=== PATIENT | female | born 1945 | race Caucasian/White ===

== ENCOUNTER 2016-05-29 11:48 | Inpatient (IN) | payer OTHER ==
[2016-05-29] MEDS ORDERED: SODIUM CHLORIDE 0.9% INJ SCH (12:17)
[2016-05-29] MEDS ORDERED: NS 500 ML IV ONE ×2 (12:17)
[2016-05-29] MEDS ORDERED: NS 1,000 ML ONE (12:53)
[2016-05-29] MEDS: NS 1,000 ML IV SCH ×2 (12:58→21:08)
[2016-05-29] MEDS ORDERED: PROTONIX IV SCH (13:00)
[2016-05-29 13:31] LABS: ALLEN TEST YES; BLOOD TYPE ARTERIAL; DRAW SITE L RADIAL; METHB 1.4 % (0.0-1.5); O2(CT) 8.9 mL/dL (15.0-23.0); PCO2(98.6) 32 mmHg (35-45); PO2(98.6) 72 mmHg (60-100); SAMPLE BLOOD; SAO2 100.5 % (95.0-100.0); THB 6.6 g/dL (11.5-17.4)
[2016-05-29 13:32] LABS: MODALITY ROOM AIR
[2016-05-29 13:33] LABS: pH(98.6) 7.56 (7.35-7.45)
--- NOTE | 2016-05-29 14:20 | Diag Imaging Result Document ---
PROCEDURE NAME: CHEST-1 VIEW - 05/29/2016 AP PORTABLE CHEST AT 1320 HOURS: FINDINGS: There is increasing opacification in the mid right lung probably in the middle lobe or lower lobe. There may be some fluid in the minor fissure as well. The left lung remains clear. IMPRESSION: Worsening right-sided pneumonia.
[2016-05-29 15:06] LABS: MANUAL DIFF NEEDED? NO
[2016-05-29 15:30] LABS: ALBUMIN 2.2 g/dL (3.5-5.0); CALCIUM 8.2 mg/dL (8.8-10.2); POTASSIUM 3.2 mmol/L (3.5-5.1); TOTAL BILIRUBIN 0.52 mg/dL (0.20-1.00); TOTAL PROTEIN 5.4 g/dL (6.3-8.3)
[2016-05-29 15:47] LABS: BASO% 0.2 % (0.0-0.8); EOS# 0.04 X1000 (0.0-0.7); EOS% 0.3 % (0.0-10.0); HEMATOCRIT 20.4 % (37.0-47.0); HEMOGLOBIN 6.8 g/dL (12.0-16.0); IMM GRAN# 0.06 X1000 (0.0-0.04); IMM GRAN% 0.5 % (0.0-0.5); LYMPH# 0.92 X1000 (1.2-3.4); LYMPH% 7.2 % (20.5-51.1); MCH 29.6 PG (27-31); MCHC 33.3 g/dL (33-37); MCV 88.7 FL (81-99); MONO# 1.25 X1000 (0.11-0.59); MONO% 9.7 % (1.7-9.3); MPV 9.7 FL (7.4-10.4); NEUT% 82.1 % (42.2-75.2); PLT 217 X1000 (130-400)
[2016-05-29] MEDS: PROTONIX 80 MG in NS 80 ML IV SCH (18:04)
[2016-05-29] MEDS: LEVAQUIN 500 MG/D5W 100 ML IV SCH (18:35)
[2016-05-29] MEDS: CARAFATE LIQUID PO SCH ×2 (18:47→19:14)
--- NOTE | 2016-05-29 20:51 | HISTORY AND PHYSICAL ---
CHIEF COMPLAINT: Passing of black stools. Anemia, dizziness, hypotension. HISTORY OF PRESENT ILLNESS: She is a 70-year-old pleasant white female who was seen in my office after recently discharged from the hospital 7 days ago. She was doing well until yesterday, passing black stools. She is very hypertensive, very pale. She has dark black tarry stools and heme-positive. Hematocrit was 20. She also had hypokalemia, hyponatremia, transfer to [facility] directly by ambulance for upper GI bleeding. She denies of any abdominal pain. She was started on IV fluids for hemodynamic stability until she gets the blood transfusion. She was ordered for 2 units of packed RBCs. Started on IV Protonix and also replace the potassium and GI consult was obtained by Dr. Luis cueto. She looks stable. PAST MEDICAL HISTORY: 1. Metastatic non-small cell lung cancer with right middle lobe obstruction. 2. Hypertension. 3. Hyperlipidemia. 4. COPD. 5. Tobacco abuse. 6. Peripheral vascular disease. 7. History of acid reflux disease. 8. Abdominal aortic aneurysm 3.4 cm. 9. History of bilateral renal artery stents. 10. History of right carotid endarterectomy. 11. Status post left superficial femoral atherectomy. 12. SIADH. PAST SURGICAL HISTORY: Bilateral stents, right carotid endarterectomy, left superficial femoral atherectomy. MEDICINES: Home oxygen 2 L. Protonix 40 daily. Amitriptyline 50 at bedtime. Coreg 12.5 p.o. b.i.d. Amlodipine 5 mg daily. Pletal 100 p.o. b.i.d. Potassium 20 mEq daily. Breo 1 inhalation daily. Spiriva 1 inhalation daily. Xanax 0.5 at bedtime. Tramadol 50 b.i.d. Folic acid 1 mg daily. ALLERGIES: Penicillin. SOCIAL HISTORY: Lives in [place]. . 3 children. Retired. No smoking recently, no alcohol. FAMILY HISTORY: Father 90 years old with hypertension. Mom of diabetes and hypertension. HEALTH MAINTENANCE: Flu vaccine 2015, pneumonia in 2014, mammography 2015, colonoscopy 2009. REVIEW OF SYSTEMS: HEENT: Dizziness. Passing out. Unable to walk. Neurologic: No shortness of breath. No chest pain. GI: No abdominal pain. Passing black stools. : No history of hesitancy, frequency. Weak legs. No obvious deficits noted. Skin: A small lump in the right side of the abdomen. PHYSICAL EXAMINATION: GENERAL: In my office, she is hypotensive, tachycardic, very pale and tongue is dry. NECK: Supple. CHEST: No wheezing. Decreased breath sounds on the right side. HEART: Sounds are tachycardic. ABDOMEN: Belly is soft. No obvious signs of peritonitis. Heme-positive stools. EXTREMITIES: No peripheral edema or cyanosis. No obvious deficits noted. INVESTIGATIONS: CBC: White cell count 12, hematocrit 20, platelets 217,000. ABG: PH is 7.56, pCO2 32, PO2 72 on room air. SMA 7: Sodium 123, potassium 3.2, BUN 21, creatinine 1.3, calcium 8.2, alkaline phosphatase 116. Chest x-ray: Worsening of the right middle lobe pneumonia. ASSESSMENT AND PLAN: 1. 70-year-old white female, with a stage IV non-small cell lung cancer under care of Dr. Roche, waiting for treatment once her performance status improves. Unable to improve the right middle lobe pneumonia for the last 2 months. Basically, admitted to the hospital with anemia, hypertension, Hemoccult positive stools. Rule out upper gastrointestinal bleeding. Plan is transfusion 2 units of packed RBCs. Intravenous proton pump inhibitor, avoid nonsteroidal antiinflammatory drugs and Lovenox. 2. Deep venous thrombosis prophylaxis with antithrombotic stockings and continue on intravenous Protonix. 3. Right middle lobe pneumonia due to post obstruction. Plan is intravenous antibiotics with Levaquin, bronchodilators and stay away from the intravenous steroids. 4. Hyponatremia due to syndrome of inappropriate antidiuretic hormone secretion. 5. Hypokalemia, replace the potassium. 6. Living Will is Do Not Resuscitate. 7. Gastroenterology consult with Dr. Luis cueto.
[2016-05-29] MEDS: DUONEB (A & A) INH PRN (21:05)
[2016-05-29] MEDS: ULTRAM PO SCH (21:09)
[2016-05-29] MEDS: XANAX XR PO SCH (21:09)
[2016-05-29] MEDS ORDERED: NS 500 ML ONE (21:29)
[2016-05-29] MEDS: POTASSIUM CHLORIDE 40 MEQ in NS 250 ML IV SCH (21:44)
[2016-05-30] MEDS ORDERED: BLISTEX MEDICATED BERRY LIP BALM TOP PRN (01:57)
[2016-05-30] MEDS: CARAFATE LIQUID PO SCH (02:24)
[2016-05-30] MEDS: DUONEB (A & A) INH PRN ×4 (03:30→18:56)
[2016-05-30] MEDS ORDERED: LASIX IV ONE ×2 (03:32→08:24)
[2016-05-30] MEDS: POTASSIUM CHLORIDE 40 MEQ in NS 250 ML IV SCH (04:40)
[2016-05-30] MEDS: PROTONIX 80 MG in NS 80 ML IV SCH ×2 (05:19→13:33)
[2016-05-30] MEDS: NS 1,000 ML IV SCH ×3 (05:20→18:18)
[2016-05-30] MEDS: SPIRIVA INH SCH ×4 (05:21→21:25)
[2016-05-30 07:04] LABS: MANUAL DIFF NEEDED? NO
[2016-05-30 07:08] LABS: BASO% 0.2 % (0.0-0.8); EOS# 0.08 X1000 (0.0-0.7); EOS% 0.6 % (0.0-10.0); HEMOGLOBIN 10.8 g/dL (12.0-16.0); IMM GRAN% 0.7 % (0.0-0.5); LYMPH# 0.77 X1000 (1.2-3.4); LYMPH% 5.7 % (20.5-51.1); MCH 29.8 PG (27-31); MCHC 34.8 g/dL (33-37); MCV 85.4 FL (81-99); MONO# 1.25 X1000 (0.11-0.59); MONO% 9.3 % (1.7-9.3); MPV 9.4 FL (7.4-10.4); NEUT% 83.5 % (42.2-75.2); PLT 209 X1000 (130-400); RBC 3.63 XMIL (4.2-5.4)
[2016-05-30 07:10] LABS: INR 1.2; PROTIME 12.7 Seconds (9.2-11.7)
[2016-05-30 07:24] LABS: POTASSIUM 3.6 mmol/L (3.5-5.1)
[2016-05-30] MEDS ORDERED: VENOFER IV ONE (08:12)
[2016-05-30] MEDS: CYANOCOBALAMIN IM SCH (08:16)
[2016-05-30] MEDS ORDERED: VENOFER 300 MG in NS 250 ML IV ONE (09:00)
[2016-05-30 11:17] LABS: URINE CULTURE NEEDED? NO; URINE SOURCE CATH
[2016-05-30 11:24] LABS: BILIRUBIN URINE NEGATIVE (NEGATIVE); BLOOD URINE NEGATIVE (NEGATIVE); COLOR STRAW; GLUCOSE URINE NEGATIVE (NEGATIVE); LEUKOCYTES URINE NEGATIVE (NEGATIVE); NITRITE URINE NEGATIVE (NEGATIVE); PROTEIN URINE TRACE mg/dL (NEGATIVE); SP GRAVITY URINE 1.006; TURBIDITY URINE CLEAR (CLEAR); URINE MICRO REVIEW NEEDED? YES; UROBILINOGEN URINE NORMAL (NORMAL)
[2016-05-30 11:30] LABS: UR EPITHELIAL CELLS <10 /HPF (<10); URINE BACTERIA NEGATIVE /HPF; URINE RBC <10 /HPF (<10); URINE WBC <10 /HPF (<10)
[2016-05-30] MEDS ORDERED: DIPRIVAN 1% ONE (13:06)
[2016-05-30] MEDS ORDERED: STERILE WATER INJ. ONE (13:28)
[2016-05-30] MEDS ORDERED: NEO-SYNEPHRINE ONE (13:28)
[2016-05-30] MEDS ORDERED: NS 500 ML ONE (13:29)
[2016-05-30] MEDS ORDERED: ANESTHESIA PB SET 88 IN 5742 ONE (13:29)
[2016-05-30] MEDS ORDERED: XYLOCAINE-MPF 2% ONE (13:29)
[2016-05-30] MEDS: ULTRAM PO SCH ×2 (13:33→20:15)
[2016-05-30] MEDS ORDERED: MYLICON DROPS (DOSE) MISC ONE (13:35)
--- NOTE | 2016-05-30 13:43 | OPERATIVE NOTE ---
PROCEDURE DATE : 05/30/2016 PREOPERATIVE DIAGNOSIS: Gastrointestinal bleed. POSTOPERATIVE DIAGNOSIS: Large ulcerated mass in the gastric fundus, likely metastatic carcinoma. DESCRIPTION OF PROCEDURE: After informed consent, adequate intravenous sedation, the scope introduced in esophagus. Had no varices. Cardia, fundus, body carefully examined. No old blood seen. Duodenum: No old blood seen. On retroflexed view, she had a small AVM; however, right next to it, patient had a large ulcerated mass with some old blood adherent. This was lavaged. There is no active bleeding anywhere. Biopsies were done around the edges. INCOMPLETE REPORT--DICTATION ENDS HERE.
[2016-05-30] MEDS: BREO ELLIPTA 100/25 MCG INH INH SCH (15:26)
[2016-05-30] MEDS: CARAFATE PO SCH ×2 (16:39→20:15)
[2016-05-30] MEDS: MYCOSTATIN SUSP PO SCH ×2 (16:56→20:15)
[2016-05-30] MEDS: LEVAQUIN 500 MG/D5W 100 ML IV SCH (18:18)
[2016-05-30] MEDS: NORCO-5 PO PRN (19:05)
[2016-05-30] MEDS: XANAX XR PO SCH (20:15)
[2016-05-31] MEDS: NORCO-5 PO PRN ×3 (00:50→15:37)
[2016-05-31] MEDS: PROTONIX 80 MG in NS 80 ML IV SCH ×3 (01:05→11:32)
[2016-05-31] MEDS: DUONEB (A & A) INH PRN ×4 (03:04→19:56)
[2016-05-31] MEDS: CARAFATE PO SCH ×4 (06:14→20:27)
[2016-05-31] MEDS: NS 1,000 ML IV SCH (06:14)
[2016-05-31] MEDS: CYANOCOBALAMIN IM SCH (08:49)
[2016-05-31] MEDS: ULTRAM PO SCH ×2 (08:49→20:27)
[2016-05-31] MEDS: CLINIMIX E 4.25%-5% SOLUTION 1,000 ML IV SCH (08:49)
[2016-05-31] MEDS: MYCOSTATIN SUSP PO SCH ×4 (08:50→20:29)
[2016-05-31] MEDS: BREO ELLIPTA 100/25 MCG INH INH SCH (10:31)
[2016-05-31 14:48] LABS: BASO% 0.2 % (0.0-0.8); EOS# 0.26 X1000 (0.0-0.7); HEMATOCRIT 29.3 % (37.0-47.0); HEMOGLOBIN 9.8 g/dL (12.0-16.0); LYMPH# 1.43 X1000 (1.2-3.4); LYMPH% 10.7 % (20.5-51.1); MANUAL DIFF NEEDED? YES; MCH 29.6 PG (27-31); MCHC 33.4 g/dL (33-37); MCV 88.5 FL (81-99); MONO# 0.77 X1000 (0.11-0.59); MONO% 5.8 % (1.7-9.3); MPV 9.1 FL (7.4-10.4); NEUT% 81.3 % (42.2-75.2); PLT 144 X1000 (130-400); RBC 3.31 XMIL (4.2-5.4)
[2016-05-31 14:53] LABS: BANDS 4 % (0-1); LYMPHS 12 % (21-51); MONO 6 % (1-9)
[2016-05-31 15:03] LABS: CALCIUM 7.6 mg/dL (8.8-10.2); POTASSIUM 3.3 mmol/L (3.5-5.1)
--- NOTE | 2016-05-31 16:15 | PROGRESS NOTE ---
DATE: 05/31/2016 SUBJECTIVE: The patient is currently resting in bed. Her daughters are present at bedside. We are awaiting the biopsy results from the stomach ulcerated mass. OBJECTIVE: Vital Signs: Temperature 97.5 degrees, pulse rate 107, respiratory rate 16, blood pressure 115/57, saturating 97% on 3 L nasal cannula. General Appearance: Thinly built, lying in bed, in no acute distress. HEENT: Pale conjunctivae. No icterus. Neck: Supple. Abdomen: Soft, nontender, nondistended. Small bruise noted on the skin of the abdomen. Extremities: No cyanosis, clubbing. Neurologic: She was awake and alert and answers simple questions. LABORATORY DATA: Her hemoglobin and hematocrit are 9.8 and 29.3, white count of 13.31, platelet count of 144,000. Sodium 126, potassium 3.3, chloride of 86, bicarb of 25, anion gap of 15, BUN of 17, creatinine 1, glucose of 166, calcium 7.6. AST 17, ALT 11, alkaline phosphatase 116, total protein 5.4, albumin of 2.2. INR is 1.20. IMPRESSION AND PLAN: 1. Non-small cell lung cancer diagnosed 3 weeks ago. Awaiting Oncology input per Dr. Palencia. 2. Large ulcerated mass in the gastric fundus, likely metastatic carcinoma, but awaiting the gastric biopsy results. 3. Anemia. Will need to watch. 4. Will continue on Protonix drip, and then after 72 hours, switch to Protonix intravenously twice daily. She will continue on Carafate 1 gram every 6 hours. Above plan of care was discussed with the patient and family.
[2016-05-31] MEDS: LEVAQUIN 500 MG/D5W 100 ML IV SCH (16:59)
[2016-05-31] MEDS: SPIRIVA INH SCH (19:56)
[2016-05-31] MEDS: XANAX XR PO SCH (20:27)
[2016-06-01] MEDS: NORCO-5 PO PRN ×3 (00:36→16:16)
[2016-06-01] MEDS: PROTONIX 80 MG in NS 80 ML IV SCH ×2 (00:37→09:46)
[2016-06-01] MEDS: CARAFATE PO SCH ×4 (06:43→22:22)
[2016-06-01] MEDS: CLINIMIX E 4.25%-5% SOLUTION 1,000 ML IV SCH (06:44)
[2016-06-01 07:49] LABS: MANUAL DIFF NEEDED? NO
[2016-06-01 07:54] LABS: BASO% 0.8 % (0.0-0.8); EOS# 0.18 X1000 (0.0-0.7); EOS% 1.7 % (0.0-10.0); HEMATOCRIT 29.7 % (37.0-47.0); HEMOGLOBIN 10.2 g/dL (12.0-16.0); IMM GRAN# 0.13 X1000 (0.0-0.04); IMM GRAN% 1.2 % (0.0-0.5); LYMPH# 1.56 X1000 (1.2-3.4); LYMPH% 14.7 % (20.5-51.1); MCH 29.6 PG (27-31); MCHC 34.3 g/dL (33-37); MCV 86.1 FL (81-99); MONO# 0.86 X1000 (0.11-0.59); MONO% 8.1 % (1.7-9.3); MPV 9.9 FL (7.4-10.4); NEUT% 73.5 % (42.2-75.2); PLT 160 X1000 (130-400); RBC 3.45 XMIL (4.2-5.4)
[2016-06-01 08:13] LABS: AGAP 15; BUN 18 mg/dL (8-22); CALCIUM 7.9 mg/dL (8.8-10.2); CHLORIDE 84 mmol/L (98-107); COSMO 253; POTASSIUM 3.3 mmol/L (3.5-5.1); SODIUM 125 mmol/L (136-145); TCO2 26 mmol/L (25-35)
[2016-06-01] MEDS: ULTRAM PO SCH ×2 (09:45→22:21)
[2016-06-01] MEDS: CYANOCOBALAMIN IM SCH (09:46)
[2016-06-01] MEDS: MYCOSTATIN SUSP PO SCH ×4 (09:46→22:36)
[2016-06-01] MEDS: POTASSIUM CHLORIDE 40 MEQ in NS 250 ML IV SCH ×2 (09:54→22:21)
--- NOTE | 2016-06-01 11:17 | PROGRESS NOTE ---
DATE: 06/01/2016 SUBJECTIVE: The patient is resting in bed. She was seen by Dr. Palencia yesterday and the plan is to start her on radiation and chemotherapy today. PHYSICAL EXAMINATION: Vital Signs: Temperature of 97.6 degrees, pulse rate of 108, respiratory rate of rate 20, blood pressure 132/75, saturating 94% on nasal cannula. Body weight of 140 pounds 8 ounces. General Appearance: Moderately built, moderately nourished, lying in bed, in no acute distress. HEENT: Pale conjunctivae. No icterus. Neck: Supple. Abdomen: Soft, nontender, nondistended. Extremities: No cyanosis, clubbing. Neurologic: She is alert, awake, oriented x3. LABS: Her hemoglobin and hematocrit are 10.2 and 29.7, white count of 10.5, platelet count of 160,000, MCV of 86.1. INR 1.2. Sodium of 125, potassium 3.3, chloride of 84, bicarb of 26, anion gap of 15, BUN of 15, creatinine of 0.8, glucose of 94, calcium 7.9. IMPRESSION AND PLAN: 1. Non-small cell lung cancer, likely metastatic. Now starting chemotherapy and radiation therapy with Dr. Palencia. 2. Large ulcerated mass in the gastric fundus, biopsied. We will follow the stomach biopsies. 3. Anemia. We will continue iron supplementation. 4. Gastrointestinal prophylaxis with Protonix and Carafate. 5. The patient has constipation. She has not had a bowel movement in last 2 or 3 days so we will start her on Summer-Colace once daily. 6. The above plan of care was discussed with the patient and family. All questions were answered.
[2016-06-01] MEDS: BREO ELLIPTA 100/25 MCG INH INH SCH (11:48)
[2016-06-01] MEDS: DUONEB (A & A) INH PRN ×3 (11:48→22:41)
--- NOTE | 2016-06-01 12:18 | CONSULTATION ---
DATE OF CONSULTATION: 05/31/2016 We appreciate this consult. CHIEF COMPLAINT: Metastatic lung cancer with GI bleed. HISTORY OF PRESENT ILLNESS: Ms. Springer is a very pleasant 70-year-old female with recent diagnosis of lung cancer who presented to [facility] secondary to passing black stools. Upon presentation to [facility], the patient was quite hypotensive with significant dizziness. The patient was found to have a hematocrit of 20 on admission as well as significant hypokalemia, hyponatremia. The patient was immediately begun on IV fluids with plans for transfusion of packed red blood cells. GI consult was obtained, and the patient subsequently underwent EGD which revealed a large ulcerated mass in the gastric fundus likely secondary to metastatic carcinoma. Pathology is currently pending at this time. We are consulted for lung cancer with likely metastasis to gastric fundus. PAST MEDICAL HISTORY: 1. Metastatic non-small cell lung cancer with right middle lobe obstruction. 2. Hypertension. 3. Hyperlipidemia. 4. COPD. 5. Tobacco abuse. 6. Peripheral vascular disease. 7. Gastroesophageal reflux disease. 8. Abdominal aortic aneurysm, 3.4 cm. 9. Bilateral renal artery stents. 10.Right carotid endarterectomy. 11.Left superficial femoral arthrectomy. 12.SIADH. PAST SURGICAL HISTORY: 1. Bilateral renal stent placement. 2. Right carotid endarterectomy. 3. Left superficial femoral arthrectomy. FAMILY HISTORY: Significant for hypertension in her father and mother, negative for any hematologic or oncologic disease. SOCIAL HISTORY: The patient is . She has 3 children. She does not currently smoke. She does not use alcohol or illicit drugs. MEDICATIONS ON ADMISSION: 1. Home O2 at 2 L. 2. Protonix. 3. Amitriptyline. 4. Coreg. 5. Amlodipine. 6. Pletal. 7. Potassium. 8. Breo. 9. Spiriva. 10.Xanax. 11.Tramadol. 12.Folic acid. ALLERGIES: Penicillin. REVIEW OF SYSTEMS: A 14-point review of systems was obtained and is negative except for as mentioned in the HPI. PHYSICAL EXAMINATION: General: Ms. Springer is a 70-year-old female lying supine in bed in no immediate distress. Vital signs: Temp 98.4, blood pressure 131/70, heart rate 109, respirations 16, O2 saturation 99% on 3 L nasal cannula O2. HEENT: Normocephalic, atraumatic. Mucous membranes are pink and somewhat dry. Sclera is anicteric. Extraocular movements intact. Neck: Supple. Lungs: Clear to auscultation bilaterally with decreased breath sounds in the right lower lobe. Chest expansion is equal bilaterally. CV: S1, S2 is heard without murmur, rub, or gallop. Abdomen: Soft, nondistended. Positive in the epigastric region. Bowel sounds are positive in all quadrants. No rebound or guarding noted. Extremities: Without clubbing, cyanosis, or edema. Dermatologic: No rashes, bruises, or lesions. Neurologic: The patient is awake, alert, and oriented x3. She has no focal deficit at this time. LABORATORY DATA: Hemoglobin 10.8, hematocrit 31.0, white blood cell count 13.43, platelets 209, ANC 11.20. Sodium 128, potassium 3.6, chloride 89, CO2 is 25, BUN 17, creatinine 1.1, glucose 104. Calcium is 8.0. UA is negative for UTI. ASSESSMENT AND PLAN: 1. Metastatic lung cancer now with likely gastric fundus involvement. The patient is status post EGD which revealed a large ulcerated mass in the gastric fundus which is likely metastatic cancer, pathology is currently pending. We will obtain PD-L1 by EGFR with questionable radiation to stomach. Treatment plan to be discussed by Dr. Palencia with the family. 2. Acute gastrointestinal bleed with subsequent esophagogastroduodenoscopy revealing large ulcerated mass in the gastric fundus, likely metastatic cancer. Pathology is currently pending. Hemoglobin has increased to 10.8 status post packed red blood cell transfusion. We will continue to follow hemoglobin and hematocrit and transfuse as necessary. Additionally, we agree with Protonix IV as ordered. 3. We will follow along with you. 4. Further recommendations pending outcomes. The above reflects the history, exam, assessment and plan of Dr. Palencia. Dictated by HIMA Chu for Jose Palencia MD
[2016-06-01] MEDS ORDERED: NS 250 ML ONE (16:03)
[2016-06-01] MEDS ORDERED: EMEND 150 MG in NS 145 ML IV ONE (18:00)
[2016-06-01] MEDS ORDERED: ZOFRAN 16 MG in NS 50 ML IV ONE (18:20)
[2016-06-01] MEDS ORDERED: DECADRON IV ONE (18:20)
[2016-06-01] MEDS ORDERED: [UNRECOGNIZED DRUG - OTHER] IV ONE (19:00)
[2016-06-01] MEDS ORDERED: NS IV ONE ×2 (19:00→19:45)
[2016-06-01] MEDS: SPIRIVA INH SCH (19:15)
[2016-06-01] MEDS ORDERED: NS 100 ML IV ONE (19:30)
[2016-06-01] MEDS ORDERED: PARAPLATIN IV ONE (19:45)
[2016-06-01] MEDS: LEVAQUIN 500 MG/D5W 100 ML IV SCH (22:21)
[2016-06-01] MEDS: PERICOLACE PO SCH (22:21)
[2016-06-01] MEDS: XANAX XR PO SCH (22:34)
[2016-06-02] MEDS: PROTONIX 80 MG in NS 80 ML IV SCH (04:25)
[2016-06-02] MEDS: CLINIMIX E 4.25%-5% SOLUTION 1,000 ML IV SCH ×2 (06:23→20:28)
[2016-06-02] MEDS: CARAFATE PO SCH ×4 (06:31→20:21)
[2016-06-02] MEDS ORDERED: POTASSIUM CHLORIDE 40 MEQ/SWI 100 ML IV ONE (08:56)
[2016-06-02] MEDS: BREO ELLIPTA 100/25 MCG INH INH SCH (09:20)
[2016-06-02] MEDS: DUONEB (A & A) INH PRN ×4 (09:20→23:31)
[2016-06-02] MEDS: CYANOCOBALAMIN IM SCH (09:46)
[2016-06-02] MEDS: ULTRAM PO SCH ×2 (09:46→20:21)
[2016-06-02] MEDS: MYCOSTATIN SUSP PO SCH ×4 (09:47→20:29)
[2016-06-02] MEDS: POTASSIUM CHLORIDE 20 MEQ/SWI 100 ML IV SCH ×2 (09:54→14:29)
[2016-06-02] MEDS ORDERED: ZOFRAN IV ONE (13:00)
[2016-06-02] MEDS: NORCO-5 PO PRN ×2 (16:30→23:23)
[2016-06-02] MEDS: LEVAQUIN 500 MG/D5W 100 ML IV SCH (18:22)
[2016-06-02] MEDS: PERICOLACE PO SCH (20:21)
[2016-06-02] MEDS: XANAX XR PO SCH (20:21)
[2016-06-02] MEDS: SPIRIVA INH SCH ×2 (20:31)
[2016-06-03] MEDS ORDERED: SOLU-MEDROL IV ONE (00:51)
[2016-06-03] MEDS: DUONEB (A & A) INH PRN ×4 (05:52→22:20)
[2016-06-03] MEDS: PROTONIX PO SCH (06:06)
[2016-06-03] MEDS: CARAFATE PO SCH ×4 (06:06→20:39)
[2016-06-03] MEDS: NORCO-5 PO PRN (06:06)
[2016-06-03] MEDS: SOLU-MEDROL IV SCH ×3 (06:46→20:42)
[2016-06-03 07:01] LABS: BASO% 0.2 % (0.0-0.8); HEMATOCRIT 26.6 % (37.0-47.0); HEMOGLOBIN 8.9 g/dL (12.0-16.0); IMM GRAN# 0.09 X1000 (0.0-0.04); IMM GRAN% 0.7 % (0.0-0.5); LYMPH# 0.33 X1000 (1.2-3.4); LYMPH% 2.4 % (20.5-51.1); MANUAL DIFF NEEDED? YES; MCH 29.2 PG (27-31); MCHC 33.5 g/dL (33-37); MCV 87.2 FL (81-99); MONO# 0.21 X1000 (0.11-0.59); MONO% 1.5 % (1.7-9.3); MPV 11.3 FL (7.4-10.4); NEUT% 95.2 % (42.2-75.2); PLT 128 X1000 (130-400); RBC 3.05 XMIL (4.2-5.4)
[2016-06-03 07:04] LABS: AGAP 15; BUN 40 mg/dL (8-22); CALCIUM 7.6 mg/dL (8.8-10.2); CHLORIDE 90 mmol/L (98-107); COSMO 274; POTASSIUM 4.7 mmol/L (3.5-5.1); SODIUM 129 mmol/L (136-145); TCO2 24 mmol/L (25-35)
[2016-06-03 08:10] LABS: BANDS 2 % (0-1); LYMPHS 4 % (21-51); MONO 6 % (1-9)
[2016-06-03 08:11] LABS: HYPOCHROM 1+
[2016-06-03] MEDS: BREO ELLIPTA 100/25 MCG INH INH SCH (08:27)
--- NOTE | 2016-06-03 08:54 | Diag Imaging Result Document ---
PROCEDURE NAME: CHEST-PORTABLE - 06/03/2016 SINGLE FRONTAL RADIOGRAPH OF THE CHEST: COMPARISON: 05/29/2016. FINDINGS: Dense consolidation throughout the right lung has worsened during the interval. The greatest density is at the right lower lung zone. The left lung remains grossly clear. The cardiac silhouette is stable. There has been interval placement of a left PICC line, with the tip projecting over the region of the atriocaval junction in expected position. IMPRESSION: Interval worsening of dense infiltrates throughout the right lung, suggesting pneumonia.
[2016-06-03] MEDS ORDERED: SOLU-MEDROL IV SCH ×2 (09:00→13:00)
[2016-06-03] MEDS: ULTRAM PO SCH ×2 (11:09→20:40)
[2016-06-03] MEDS: MYCOSTATIN SUSP PO SCH ×4 (11:10→20:40)
[2016-06-03] MEDS: CYANOCOBALAMIN IM SCH (11:10)
[2016-06-03] MEDS: ZOFRAN IV PRN (11:19)
[2016-06-03] MEDS ORDERED: VANCOMYCIN IV PER PHARMACY MISC SCH (12:00)
[2016-06-03] MEDS ORDERED: NS 500 ML IV ONE (14:04)
[2016-06-03] MEDS: CLINIMIX E 4.25%-5% SOLUTION 1,000 ML IV SCH (16:36)
[2016-06-03] MEDS: VANCOMYCIN 1.5 GM in NS 250 ML IV SCH (16:36)
--- NOTE | 2016-06-03 18:23 | CONSULTATION ---
DATE OF CONSULTATION: 06/03/2016 REQUESTING PHYSICIAN: Dr. Chan. REASON FOR CONSULTATION: Pneumonia. HISTORY OF PRESENT ILLNESS: Ms. Springer is a 70-year-old white female who was admitted to the hospital in April with shortness of breath. The patient has undergone a bronchoscopy by Dr. Lara on 04/21/2016 which revealed adenocarcinoma involving the right middle lobe. She underwent a PET scan which revealed stage IV disease with bilateral adrenal metastasis. She was discharged home only to be readmitted to the hospital on 05/29/2016 with melena. The patient underwent EGD by Dr. Smith which reveal revealed a large ulcerated mass in the duodenum. Biopsy of this mass revealed adenocarcinoma consistent with metastatic disease. She underwent chest x-ray on the day of admission, which revealed opacification in the right middle lobe. She underwent a chest x- ray today which reveals diffuse infiltrates throughout the right lung. The patient reports she has had some nausea. She denies overt vomiting. She is hoarse. She has no appetite. PAST MEDICAL HISTORY/PROBLEM LIST: 1. Stage IV adenocarcinoma of the lung as per HPI with obstruction of the right middle lobe. 2. COPD. 3. History of tobacco use. 4. Peripheral vascular disease. 5. Gastroesophageal reflux disease. 6. Abdominal aortic aneurysm. 7. Status post bilateral renal artery stent placement. 8. Status post right carotid endarterectomy. FAMILY HISTORY: Positive for hypertension but otherwise negative. SOCIAL HISTORY: Positive for prior tobacco use but no alcohol or drug use. PHYSICAL EXAMINATION: General: Reveals a frail, white female who has mild hoarseness. There is a notable slight wheeze with inhalation. Vital Signs: Blood pressure 139/74, heart rate 113, respiration rate 20, oxygen saturation 96%. HEENT: Pupils are equal and reactive. Oropharynx is clear. Neck: Supple. Chest: Reveals coarse breath sounds throughout the right lung. Cardiac Exam: Distant heart sounds. Increased rate, regular rhythm. Abdomen: Soft without hepatosplenomegaly. Extremities: Without edema. LABORATORIES: Chest x-ray as per HPI. White blood count 13.7, hemoglobin 8.9, platelet count 128,000. Chemistry: Sodium 129, potassium 4.7, chloride 90, bicarbonate 24, BUN 40, creatinine 0.7. IMPRESSION: 70-year-old with stage IV lung cancer, protein calorie malnutrition, nausea, metastasis to the GI tract who has known tumor obstructing the right middle lobe, but now has a diffuse pneumonia on the right side. Pneumonia is most likely related to an aspiration event given her nausea and GI difficulties. RECOMMENDATIONS: 1. Will continue albuterol and Atrovent for bronchial hygiene. 2. We will add Mucomyst to help thin secretions. 3. Agree with broad-spectrum antibiotics as you are doing. 4. We will continue Clinimix. We will add lipids. I have asked the patient to eat only when she is hungry. 5. Additional recommendations pending hospital course. End of life issues were not discussed with this patient but she is frail and has significant tumor burden and is at risk for progressive decline.
[2016-06-03] MEDS: DUONEB (A & A) INH SCH (18:52)
[2016-06-03] MEDS ORDERED: LASIX IV ONE (20:00)
[2016-06-03] MEDS: XANAX PO PRN (20:40)
[2016-06-03] MEDS: PERICOLACE PO SCH (20:40)
[2016-06-03] MEDS: LEVAQUIN 500 MG/D5W 100 ML IV SCH (20:41)
[2016-06-03] MEDS: LIPOSYN 20% 500 ML IV SCH (20:41)
[2016-06-03] MEDS: MUCOMYST 20% INH SCH (22:20)
[2016-06-04] MEDS: DUONEB (A & A) INH SCH ×6 (00:25→23:41)
[2016-06-04] MEDS: SOLU-MEDROL IV SCH ×6 (00:29→23:42)
[2016-06-04] MEDS: CLINIMIX E 4.25%-5% SOLUTION 1,000 ML IV SCH ×4 (00:31→23:42)
[2016-06-04] MEDS: NORCO-5 PO PRN ×5 (00:48→23:07)
[2016-06-04] MEDS: XANAX PO PRN ×3 (02:59→19:48)
[2016-06-04] MEDS: CARAFATE PO SCH ×5 (06:11→21:11)
[2016-06-04] MEDS: PROTONIX PO SCH (06:11)
[2016-06-04] MEDS: BREO ELLIPTA 100/25 MCG INH INH SCH (07:29)
[2016-06-04] MEDS: MUCOMYST 20% INH SCH ×2 (07:29→19:05)
--- NOTE | 2016-06-04 10:16 | Diag Imaging Result Document ---
PROCEDURE NAME: CHEST-PORTABLE - 06/04/2016 SINGLE FRONTAL RADIOGRAPH OF THE CHEST: COMPARISON: 06/03/2016. FINDINGS: Diffuse consolidation throughout the right lung persists. But there does appear to be some improvement in the right upper lung zone. The most dense portion of the consolidation in the right lower lobe is stable to marginally improved. No new consolidations are identified. There is a stable left PICC line. Cardiac silhouette is stable. IMPRESSION: Interval improvement of consolidation on the right.
[2016-06-04] MEDS: MYCOSTATIN SUSP PO SCH ×5 (10:33→21:11)
[2016-06-04] MEDS: LASIX IV SCH (10:33)
[2016-06-04] MEDS: ULTRAM PO SCH ×3 (10:33→21:10)
[2016-06-04] MEDS: VANCOMYCIN 1.5 GM in NS 250 ML IV SCH (13:20)
[2016-06-04] MEDS: ZOFRAN IV PRN ×3 (13:20→21:20)
[2016-06-04] MEDS: DUONEB (A & A) INH PRN (18:28)
[2016-06-04] MEDS ORDERED: MORPHINE ONE (21:05)
[2016-06-04] MEDS: PERICOLACE PO SCH (21:20)
[2016-06-04] MEDS: LIPOSYN 20% 500 ML IV SCH (21:21)
[2016-06-04] MEDS: LEVAQUIN 500 MG/D5W 100 ML IV SCH (21:28)
[2016-06-05] MEDS: XANAX PO PRN ×4 (01:08→19:15)
[2016-06-05] MEDS: MORPHINE IV PRN ×3 (03:03→15:26)
[2016-06-05] MEDS: ZOFRAN IV PRN (04:40)
[2016-06-05] MEDS: NORCO-5 PO PRN ×3 (04:40→19:15)
[2016-06-05] MEDS: CARAFATE PO SCH ×4 (06:25→20:39)
[2016-06-05] MEDS: SOLU-MEDROL IV SCH ×4 (06:25→22:20)
[2016-06-05] MEDS: PROTONIX PO SCH (06:25)
--- NOTE | 2016-06-05 07:28 | EKG Report ---
Test Performed on : 06/04/2016 8:42:52 PM Test Reason : SINUS TACH Blood Pressure : / mmHG Vent. Rate : 148 BPM Atrial Rate : 148 BPM P-R Int : 136 ms QRS Dur : 074 ms QT Int : 256 ms P-R-T Axes : 063 067 097 degrees QTc Int : 401 ms Sinus tachycardia. Possible Left atrial enlargement Borderline ECG When compared with ECG of 16-MAY-2016 23:44, No significant change was found Confirmed by Imtiaz Wolff MD ([id number]) on 06/07/2016 8:56:32 PM
[2016-06-05] MEDS: DUONEB (A & A) INH SCH ×4 (08:10→19:15)
[2016-06-05] MEDS: BREO ELLIPTA 100/25 MCG INH INH SCH (08:10)
[2016-06-05] MEDS: MUCOMYST 20% INH SCH ×2 (08:10→21:12)
[2016-06-05 09:10] LABS: BASO% 0.4 % (0.0-0.8); EOS# 0.03 X1000 (0.0-0.7); EOS% 0.3 % (0.0-10.0); HEMATOCRIT 22.5 % (37.0-47.0); HEMOGLOBIN 7.9 g/dL (12.0-16.0); IMM GRAN# 0.23 X1000 (0.0-0.04); IMM GRAN% 2.1 % (0.0-0.5); LYMPH# 0.28 X1000 (1.2-3.4); LYMPH% 2.5 % (20.5-51.1); MANUAL DIFF NEEDED? YES; MCH 29.9 PG (27-31); MCHC 35.1 g/dL (33-37); MCV 85.2 FL (81-99); MONO% 0.9 % (1.7-9.3); MPV 11.6 FL (7.4-10.4); NEUT% 93.8 % (42.2-75.2); PLT 76 X1000 (130-400); RBC 2.64 XMIL (4.2-5.4)
[2016-06-05 09:25] LABS: AGAP 14; BUN 61 mg/dL (8-22); CALCIUM 7.7 mg/dL (8.8-10.2); CHLORIDE 81 mmol/L (98-107); COSMO 271; POTASSIUM 4.4 mmol/L (3.5-5.1); SODIUM 121 mmol/L (136-145); TCO2 26 mmol/L (25-35)
[2016-06-05] MEDS: MYCOSTATIN SUSP PO SCH ×4 (09:25→20:41)
[2016-06-05] MEDS: ULTRAM PO SCH ×2 (09:25→20:39)
[2016-06-05] MEDS: LASIX IV SCH (09:25)
[2016-06-05 10:29] LABS: BANDS 1 % (0-1); LYMPHS 3 % (21-51); MONO 1 % (1-9); POLYCHROM OCCASIONAL
[2016-06-05 10:30] LABS: HYPOCHROM 1+
[2016-06-05 10:31] LABS: LARGE PLATELETS OCCASIONAL
--- NOTE | 2016-06-05 11:45 | Diag Imaging Result Document ---
PROCEDURE NAME: CHEST-2 VIEWS - 06/05/2016 PA AND LATERAL RADIOGRAPH OF THE CHEST: COMPARISON: 06/04/2016. FINDINGS: The left PICC line is stable. Right lung consolidation is again noted that is most dense at the right lower lobe. Given differences in inspiration, it is approximately stable. No new consolidation is identified. Cardiac silhouette is stable. IMPRESSION: Essentially stable chest.
[2016-06-05] MEDS: CLINIMIX E 4.25%-5% SOLUTION 1,000 ML IV SCH (12:07)
[2016-06-05] MEDS: VANCOMYCIN 1.5 GM in NS 250 ML IV SCH (13:47)
[2016-06-05] MEDS ORDERED: NS 1,000 ML ONE (15:24)
[2016-06-05] MEDS ORDERED: NS 500 ML IV ONE (19:39)
[2016-06-05] MEDS: PERICOLACE PO SCH (20:39)
[2016-06-05] MEDS: MARINOL PO SCH (20:39)
[2016-06-05] MEDS: LEVAQUIN 500 MG/D5W 100 ML IV SCH (20:40)
[2016-06-05] MEDS: LIPOSYN 20% 500 ML IV SCH (20:41)
[2016-06-06] MEDS: DUONEB (A & A) INH SCH ×6 (00:06→23:15)
[2016-06-06] MEDS: NORCO-5 PO PRN ×3 (00:38→19:38)
[2016-06-06] MEDS: PROTONIX PO SCH (06:07)
[2016-06-06] MEDS: CARAFATE PO SCH ×5 (06:07→20:22)
[2016-06-06] MEDS: SOLU-MEDROL IV SCH ×3 (06:08→23:26)
[2016-06-06] MEDS: CLINIMIX E 4.25%-5% SOLUTION 1,000 ML IV SCH ×3 (06:08→23:29)
[2016-06-06] MEDS: BREO ELLIPTA 100/25 MCG INH INH SCH (07:58)
[2016-06-06] MEDS ORDERED: MIRALAX PO ONE (08:38)
[2016-06-06] MEDS ORDERED: CALCIUM GLUCONATE 1 GM in NS 50 ML IV ONE (08:52)
[2016-06-06] MEDS: ULTRAM PO SCH ×2 (10:18→20:15)
[2016-06-06] MEDS: LASIX IV SCH (10:19)
[2016-06-06] MEDS: MUCOMYST 20% INH SCH ×2 (10:56→19:45)
[2016-06-06] MEDS: MYCOSTATIN SUSP PO SCH ×4 (12:04→20:16)
[2016-06-06] MEDS: XANAX PO PRN ×2 (12:07→20:27)
[2016-06-06] MEDS: MORPHINE IV PRN (12:07)
--- NOTE | 2016-06-06 12:53 | PROGRESS NOTE ---
DATE: 06/05/2016 SUBJECTIVE: The patient feels fine. She still has some stomach discomfort. Not eating well. She does not have any diarrhea or bloody stools. No family is at bedside. They did say that Dr. put her on Lialda for a day and she is only getting 2. OBJECTIVE: Vital signs: Stable. HEENT: Conjunctival pallor present. Neck: Supple. Trachea midline. Heart and Lungs: Normal. Abdomen: Mild distention. Bowel sounds present and normal. Minimally tender on deep palpation. Extremities: Unremarkable. LABORATORY DATA: Reviewed. Her potassium is up to 2.9. She has received 60 mEq on dose. We will increase the Lialda to her usual dose. The PT and PTT have come down. The PT has come down with INR of 1.9 which is in normal range. She was high. We think it is probably interaction with the Flagyl which has been discontinued. PLAN: Will continue the current management. We will follow her with you with any suggestions as clinical course dictates.
[2016-06-06] MEDS: ZOFRAN IV PRN (14:01)
--- NOTE | 2016-06-06 16:07 | CONSULTATION ---
DATE OF CONSULTATION: 06/01/2016 REASON FOR CONSULTATION: Non-small cell lung cancer with a GI bleed. HISTORY OF PRESENT ILLNESS: Ms. Springer is a 70-year-old female who has recently been diagnosed with a metastatic [id number] lung cancer involving the lung. She was recently admitted to the hospital after passing black stools which were heme-positive. She had hematocrit of 20 and was discovered to have a GI bleed. She underwent endoscopy and was found to have a large ulcerated mass in the gastric fundus most likely representing metastatic carcinoma. I have been asked to see the patient regarding palliative radiation therapy to the stomach in order to control the bleeding. PAST MEDICAL HISTORY: Metastatic non-small cell lung cancer, hypertension, hyperlipidemia, COPD, peripheral vascular disease, aortic aneurysm, bilateral renal artery stents, right carotid endarterectomy, SIADH. PAST SURGICAL HISTORY: Bilateral stents, right carotid endarterectomy, left superficial femoral atherectomy. MEDICATIONS: Protonix, amitriptyline, Coreg, amlodipine, Pletal, potassium, Breo, Spiriva, Xanax, tramadol, folic acid, home oxygen. ALLERGIES: Penicillin. SOCIAL HISTORY: The patient reports a prior history of tobacco use but none recently. She denies alcohol use. FAMILY HISTORY: None significant. REVIEW OF SYSTEMS: The patient presented with dizziness and blacking out but this is better now. She denies any shortness of breath or chest pain. She denies any abdominal pain. She denies any diarrhea. There is bleeding in the stool per the history of present illness. PHYSICAL EXAM: General: Patient is in a hospital bed and appears comfortable. Neck: Supple. No lymphadenopathy. Heart: Regular rate and rhythm. Lungs: Clear to auscultation. Abdomen: Soft. Extremities: Reveal no edema or cyanosis. ASSESSMENT/PLAN: In summary, this 70-year-old female with stage IV [id number] lung cancer with a bleeding gastric mass. I agree with recommendation for palliative radiation therapy to the stomach. I have reviewed the risks and benefits of radiation therapy in detail with the patient. She is in agreement with the plan. I will get her scheduled for simulation, will get her started with treatment just as quickly as possible.
[2016-06-06] MEDS: VANCOMYCIN 1.5 GM in NS 250 ML IV SCH (16:19)
[2016-06-06] MEDS: LEVAQUIN 500 MG/D5W 100 ML IV SCH (20:15)
[2016-06-06] MEDS: PERICOLACE PO SCH (20:16)
[2016-06-06] MEDS: MARINOL PO SCH (20:16)
[2016-06-07] MEDS: MORPHINE IV PRN ×3 (02:23→21:24)
[2016-06-07] MEDS: CLINIMIX E 4.25%-5% SOLUTION 1,000 ML IV SCH ×3 (05:00→18:45)
[2016-06-07] MEDS: SOLU-MEDROL IV SCH ×3 (06:22→22:30)
[2016-06-07] MEDS: PROTONIX PO SCH (06:22)
[2016-06-07] MEDS: CARAFATE PO SCH ×4 (06:22→21:24)
[2016-06-07 07:04] LABS: BASO% 0.7 % (0.0-0.8); EOS# 0.02 X1000 (0.0-0.7); EOS% 0.3 % (0.0-10.0); HEMATOCRIT 30.7 % (37.0-47.0); HEMOGLOBIN 11.1 g/dL (12.0-16.0); IMM GRAN# 0.08 X1000 (0.0-0.04); IMM GRAN% 1.1 % (0.0-0.5); LYMPH# 0.29 X1000 (1.2-3.4); LYMPH% 3.8 % (20.5-51.1); MANUAL DIFF NEEDED? YES; MCHC 36.2 g/dL (33-37); MONO# 0.64 X1000 (0.11-0.59); MONO% 8.4 % (1.7-9.3); MPV 11.5 FL (7.4-10.4); NEUT% 85.7 % (42.2-75.2); PLT 79 X1000 (130-400)
[2016-06-07 07:19] LABS: AGAP 14; BUN 59 mg/dL (8-22); CALCIUM 8.6 mg/dL (8.8-10.2); CHLORIDE 76 mmol/L (98-107); COSMO 271; POTASSIUM 3.1 mmol/L (3.5-5.1); SODIUM 122 mmol/L (136-145); TCO2 32 mmol/L (25-35)
[2016-06-07 08:26] LABS: BANDS 10 % (0-1); LYMPHS 4 % (21-51); MONO 8 % (1-9)
[2016-06-07] MEDS: DUONEB (A & A) INH SCH ×5 (08:35→23:45)
[2016-06-07] MEDS: BREO ELLIPTA 100/25 MCG INH INH SCH (08:35)
[2016-06-07] MEDS: POTASSIUM CHLORIDE 60 MEQ in NS 500 ML IV SCH ×2 (09:38→18:19)
[2016-06-07] MEDS: MYCOSTATIN SUSP PO SCH ×4 (09:38→21:46)
[2016-06-07] MEDS: ULTRAM PO SCH ×2 (09:38→21:43)
[2016-06-07] MEDS: MIRALAX PO SCH (09:39)
[2016-06-07] MEDS: LASIX IV SCH (09:39)
--- NOTE | 2016-06-07 10:00 | Diag Imaging Result Document ---
PROCEDURE NAME: CHEST-1 VIEW - 06/07/2016 SINGLE FRONTAL RADIOGRAPH OF THE CHEST: COMPARISON: 06/05/2016. FINDINGS: There are diffuse infiltrates throughout the right lung. They appear to have increased in density overall as compared to the previous study. The most dense portion is still at the right lower lung zone. No new consolidations are identified on the left. Cardiac silhouette is stable. IMPRESSION: 1. Interval worsening of consolidation throughout the right lung. 2. Not mentioned above, the left PICC line is in stable.
[2016-06-07] MEDS: ZOFRAN IV PRN ×2 (12:02→16:30)
[2016-06-07] MEDS: XANAX PO PRN ×2 (12:03→21:23)
[2016-06-07] MEDS: MUCOMYST 20% INH SCH ×2 (12:09→19:50)
[2016-06-07] MEDS: VANCOMYCIN 1.5 GM in NS 250 ML IV SCH (16:30)
[2016-06-07] MEDS: NORCO-5 PO PRN (16:31)
[2016-06-07] MEDS: DUONEB (A & A) INH PRN (17:06)
[2016-06-07] MEDS: MARINOL PO SCH (21:23)
[2016-06-07] MEDS: PERICOLACE PO SCH (21:24)
[2016-06-07] MEDS: LEVAQUIN 500 MG/D5W 100 ML IV SCH (21:25)
[2016-06-08] MEDS: NORCO-5 PO PRN ×2 (00:25→20:07)
[2016-06-08] MEDS: CARAFATE PO SCH ×4 (06:49→20:07)
[2016-06-08] MEDS: PROTONIX PO SCH (06:49)
[2016-06-08] MEDS: SOLU-MEDROL IV SCH ×3 (06:52→23:11)
[2016-06-08] MEDS: CLINIMIX E 4.25%-5% SOLUTION 1,000 ML IV SCH ×2 (06:57→20:09)
[2016-06-08] MEDS: DUONEB (A & A) INH SCH ×5 (08:12→23:40)
[2016-06-08] MEDS ORDERED: AYR NASAL DROPS NAS PRN (08:25)
[2016-06-08] MEDS ORDERED: APRESOLINE IV PRN (08:37)
[2016-06-08] MEDS: ZOFRAN IV PRN ×2 (08:40→12:26)
[2016-06-08] MEDS: COREG PO SCH ×2 (08:54→20:06)
[2016-06-08] MEDS: LASIX IV SCH (08:54)
[2016-06-08] MEDS: MARINOL PO SCH ×2 (08:54→20:07)
[2016-06-08] MEDS: MYCOSTATIN SUSP PO SCH ×4 (08:58→20:08)
[2016-06-08] MEDS: MIRALAX PO SCH (08:59)
[2016-06-08] MEDS: ULTRAM PO SCH ×2 (08:59→21:02)
[2016-06-08] MEDS: DUONEB (A & A) INH PRN ×2 (09:47→18:27)
[2016-06-08] MEDS: MUCOMYST 20% INH SCH ×2 (09:47→19:35)
[2016-06-08] MEDS: BREO ELLIPTA 100/25 MCG INH INH SCH (09:48)
--- NOTE | 2016-06-08 11:47 | PROGRESS NOTE ---
DATE: 06/08/2016 SUBJECTIVE: The patient is currently resting in bed. She is currently getting radiation. She has gotten 3 cycles since last Sunday. Her last blood transfusion was on 2015. She denies any vomiting of blood or passing blood in the stools. OBJECTIVE: Vital Signs: Temperature of 98.2 degrees, pulse rate of 110, blood pressure 170/100, saturating 99% on nasal cannula. General Appearance: Thinly built, lying in bed, in no acute distress. HEENT and Neck: Pale conjunctivae. No icterus. The neck is supple. Abdomen: Soft, nontender, nondistended. Extremities: No cyanosis or clubbing. Mild edema noted in the lower extremities. Neurologic: She is alert, awake, answers simple questions. LABORATORY DATA: Hemoglobin and hematocrit are 11.1 and 30.7 from yesterday. Sodium 122, potassium 3.1, chloride of 76, bicarbonate 32, anion gap 14, BUN of 59, creatinine 0.8, glucose of 244, calcium is 8.6. IMPRESSION AND PLAN: Stage IV [id number] lung cancer with bleeding gastric mass, currently undergoing palliative radiation therapy to the stomach. She is scheduled to have 15 cycles and so far has had 3 cycles. Her hematocrit has stabilized and her last transfusion was 2 days ago. We will continue on Protonix once daily. We will continue the Carafate as well. We are going to watch her hemoglobin and hematocrit. She is already on Clinimix. We will encourage her to intake Ensure 3 times a day. Please call us with any questions. I discussed the plan with the patient and the family and answered all questions. [facility]
[2016-06-08] MEDS: XANAX PO PRN ×2 (12:25→20:07)
[2016-06-08] MEDS: MORPHINE IV PRN (12:25)
[2016-06-08] MEDS ORDERED: EMEND 150 MG in NS 145 ML IV ONE (16:00)
[2016-06-08] MEDS ORDERED: ZOFRAN 16 MG in NS 50 ML IV ONE (16:30)
[2016-06-08] MEDS ORDERED: DECADRON IV ONE (16:30)
[2016-06-08] MEDS ORDERED: [UNRECOGNIZED DRUG - OTHER] IV ONE (16:45)
[2016-06-08] MEDS ORDERED: NS IV ONE ×2 (16:45→17:15)
[2016-06-08] MEDS ORDERED: PARAPLATIN IV ONE (17:15)
[2016-06-08] MEDS ORDERED: NS 100 ML IV ONE (17:15)
[2016-06-08] MEDS ORDERED: POTASSIUM CHLORIDE 20 MEQ in NS 250 ML IV ONE (18:00)
[2016-06-08] MEDS: PERICOLACE PO SCH (21:02)
[2016-06-08] MEDS: VANCOMYCIN 1.5 GM in NS 250 ML IV SCH (21:03)
[2016-06-08] MEDS: AMBIEN PO PRN (22:12)
[2016-06-08] MEDS: LEVAQUIN 500 MG/D5W 100 ML IV SCH (23:07)
[2016-06-09] MEDS: NORCO-5 PO PRN (02:24)
[2016-06-09] MEDS: XANAX PO PRN ×3 (04:38→21:18)
[2016-06-09] MEDS: MORPHINE IV PRN ×3 (04:38→17:43)
[2016-06-09] MEDS: ZOFRAN IV PRN ×4 (04:38→21:16)
[2016-06-09] MEDS: LASIX IV SCH (04:46)
[2016-06-09] MEDS: CARAFATE PO SCH (07:00)
[2016-06-09] MEDS: DUONEB (A & A) INH SCH ×5 (07:33→23:50)
[2016-06-09] MEDS: BREO ELLIPTA 100/25 MCG INH INH SCH (07:36)
--- NOTE | 2016-06-09 07:45 | Diag Imaging Result Document ---
PROCEDURE NAME: CHEST-1 VIEW - 06/09/2016 SINGLE FRONTAL RADIOGRAPH OF THE CHEST: COMPARISON: 06/07/2016. FINDINGS: Left PICC line is stable. There are persistent consolidations throughout the right lung. Overall, they appear to have improved in density. However, the most dense portion of the consolidation at the right lower lung zone is essentially stable. No new consolidation is identified. Cardiac silhouette is stable. IMPRESSION: Likely overall improvement of the diffuse consolidations bilaterally. However, the worst portion of the consolidation at the right lower lung zone is stable.
[2016-06-09 09:11] LABS: BASO% 0.2 % (0.0-0.8); EOS# 0.01 X1000 (0.0-0.7); EOS% 0.2 % (0.0-10.0); HEMATOCRIT 23.3 % (37.0-47.0); HEMOGLOBIN 8.1 g/dL (12.0-16.0); IMM GRAN# 0.09 X1000 (0.0-0.04); IMM GRAN% 1.6 % (0.0-0.5); LYMPH# 0.16 X1000 (1.2-3.4); LYMPH% 2.8 % (20.5-51.1); MANUAL DIFF NEEDED? YES; MCH 30.1 PG (27-31); MCHC 34.8 g/dL (33-37); MCV 86.6 FL (81-99); MONO# 0.76 X1000 (0.11-0.59); MONO% 13.5 % (1.7-9.3); NEUT% 81.7 % (42.2-75.2); PLT 76 X1000 (130-400); RBC 2.69 XMIL (4.2-5.4)
[2016-06-09 09:41] LABS: LYMPHS 12 % (21-51); MONO 8 % (1-9)
[2016-06-09] MEDS: MARINOL PO SCH ×2 (09:44→21:18)
[2016-06-09] MEDS: COREG PO SCH ×2 (09:45→21:18)
[2016-06-09] MEDS: ULTRAM PO SCH ×2 (09:45→21:17)
[2016-06-09] MEDS: SOLU-MEDROL IV SCH ×3 (10:02→23:23)
[2016-06-09] MEDS: PROTONIX PO SCH (10:03)
[2016-06-09] MEDS: MYCOSTATIN SUSP PO SCH ×4 (10:04→21:19)
[2016-06-09] MEDS: MIRALAX PO SCH (10:06)
[2016-06-09] MEDS: MUCOMYST 20% INH SCH ×2 (10:34→19:00)
[2016-06-09 11:00] LABS: AGAP 17; BUN 86 mg/dL (8-22); CALCIUM 7.5 mg/dL (8.8-10.2); CHLORIDE 77 mmol/L (98-107); COSMO 285; POTASSIUM 3.5 mmol/L (3.5-5.1); SODIUM 120 mmol/L (136-145); TCO2 26 mmol/L (25-35)
[2016-06-09] MEDS: CARAFATE LIQUID PO SCH ×3 (12:16→21:18)
[2016-06-09] MEDS ORDERED: NS 500 ML IV ONE (16:31)
[2016-06-09] MEDS: NACL 3% 500 ML IV SCH (17:33)
[2016-06-09] MEDS: CLINIMIX E 4.25%-5% SOLUTION 1,000 ML IV SCH ×2 (17:45→20:26)
[2016-06-09] MEDS: PERICOLACE PO SCH (21:18)
[2016-06-09] MEDS: AMBIEN PO PRN (21:18)
[2016-06-10] MEDS: CLINIMIX E 4.25%-5% SOLUTION 1,000 ML IV SCH ×3 (01:23→21:51)
[2016-06-10] MEDS: LEVAQUIN 500 MG/D5W 100 ML IV SCH (03:51)
[2016-06-10] MEDS: XANAX PO PRN ×2 (04:12→20:37)
[2016-06-10] MEDS: VANCOMYCIN 1.5 GM in NS 250 ML IV SCH (06:28)
[2016-06-10] MEDS: PROTONIX PO SCH (06:41)
[2016-06-10] MEDS: CARAFATE LIQUID PO SCH ×4 (06:42→20:38)
[2016-06-10] MEDS: SOLU-MEDROL IV SCH ×3 (07:08→23:49)
[2016-06-10] MEDS: COREG PO SCH ×2 (08:34→20:38)
[2016-06-10] MEDS: LASIX IV SCH ×2 (08:34→08:35)
[2016-06-10] MEDS: ULTRAM PO SCH ×2 (08:34→20:37)
[2016-06-10] MEDS: MARINOL PO SCH ×2 (08:34→20:37)
[2016-06-10] MEDS: MIRALAX PO SCH (08:36)
[2016-06-10] MEDS: MYCOSTATIN SUSP PO SCH ×4 (09:05→20:39)
[2016-06-10] MEDS: NORCO-5 PO PRN (10:10)
[2016-06-10] MEDS: ZOFRAN IV PRN (10:11)
[2016-06-10] MEDS ORDERED: DULCOLAX PR ONE (10:28)
[2016-06-10 10:33] LABS: BASO% 0.2 % (0.0-0.8); HEMATOCRIT 33.6 % (37.0-47.0); HEMOGLOBIN 12.1 g/dL (12.0-16.0); IMM GRAN# 0.07 X1000 (0.0-0.04); IMM GRAN% 1.6 % (0.0-0.5); LYMPH# 0.15 X1000 (1.2-3.4); LYMPH% 3.3 % (20.5-51.1); MANUAL DIFF NEEDED? YES; MCH 29.7 PG (27-31); MCV 82.6 FL (81-99); MONO# 0.22 X1000 (0.11-0.59); MONO% 4.9 % (1.7-9.3); PLT 75 X1000 (130-400); RBC 4.07 XMIL (4.2-5.4)
[2016-06-10 10:50] LABS: AGAP 18; ALBUMIN 1.7 g/dL (3.5-5.0); ALKALINE PHOSPHATASE 271 U/L (32-104); BUN 86 mg/dL (8-22); CHLORIDE 83 mmol/L (98-107); COSMO 285; GOT 23 U/L (10-30); GPT 16 U/L (10-36); POTASSIUM 3.4 mmol/L (3.5-5.1); SODIUM 126 mmol/L (136-145); TCO2 25 mmol/L (25-35); TOTAL BILIRUBIN 1.25 mg/dL (0.20-1.00); TOTAL PROTEIN 4.6 g/dL (6.3-8.3)
[2016-06-10] MEDS: BREO ELLIPTA 100/25 MCG INH INH SCH (11:01)
[2016-06-10] MEDS: DUONEB (A & A) INH SCH ×5 (11:01→23:28)
[2016-06-10] MEDS: MUCOMYST 20% INH SCH ×2 (11:02→23:28)
[2016-06-10 11:11] LABS: BANDS 6 % (0-1); LYMPHS 4 % (21-51); MONO 4 % (1-9)
--- NOTE | 2016-06-10 13:27 | PROGRESS NOTE ---
DATE: 06/10/2016 SUBJECTIVE: Ms. Springer has been having some GI bleeding. She has bilateral diffuse pneumonia. Hemoglobin was 8.1. Sodium was 120. X-ray showed some improvement. She is on vancomycin, as well as IV Solu-Medrol. OBJECTIVE: Vital signs are stable. PLAN: Zofran was given just a few minutes ago, and we will see if she responds. Overall condition is otherwise unchanged. Her hemoglobin this morning was 12.1, hematocrit 33.6. There is significant improvement. We will continue the current management. -5
[2016-06-10] MEDS: MORPHINE IV PRN ×2 (13:52→18:35)
--- NOTE | 2016-06-10 16:58 | PROGRESS NOTE ---
DATE: 06/10/2016 SUBJECTIVE: Patient currently resting in bed. She required 2 units of blood yesterday, she has no bowel movement today. She has poor oral intake. OBJECTIVE: Vitals: Temperature of 97.6 degrees, pulse rate of 104, respiratory 20, blood pressure of 149/90, saturating 100% on 3 L nasal cannula. General Appearance: Thinly built lying in bed no acute distress. HEENT: Pale conjunctiva and No icterus. Neck: Is supple. Abdomen: Is slightly protuberant, soft, nontender, nondistended and no guarding, rebound. Extremities: No cyanosis, clubbing. Neuro: She is awake and answers questions. LABS: Her hemoglobin and hematocrit is 12.1, 33.6, white count of 4.1, platelet count of 75,000, MCV of 82.6. Sodium 126, potassium 3.4, chloride of 83, bicarb 25, anion gap 18, BUN of 86, creatinine 0.8, glucose of 285, calcium is 8, total bilirubin is 1.25, AST 23, ALT 16, alkaline phosphatase 271, total protein is 4.6, albumin 1.7. IMPRESSION AND PLAN: 1. 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 She has dropped hematocrit day before and was given 2 units blood transfusion. Her hematocrit is improved. She is being followed by Dr. Palencia and Dr. Moody. Will continue on Protonix and Carafate as before. She has other ongoing issues with hyponatremia which is currently being treated by primary team. Because of poor oral intake I will continue on Clinimix. Patient did not tolerate IV lipids. We encourage her to increase her oral intake and take Ensure 3 times daily. 2. The above plan discussed the patient and family at bedside. All questions. [facility]
[2016-06-10] MEDS: NACL 3% 500 ML IV SCH (18:18)
[2016-06-10] MEDS: ZOFRAN IV SCH (18:35)
[2016-06-10] MEDS: PERICOLACE PO SCH (20:39)
[2016-06-10] MEDS: AMBIEN PO PRN (20:43)
[2016-06-11] MEDS: NORCO-5 PO PRN ×3 (00:52→16:01)
[2016-06-11] MEDS: XANAX PO PRN ×4 (02:40→21:55)
[2016-06-11] MEDS: LEVAQUIN 500 MG/D5W 100 ML IV SCH (05:07)
[2016-06-11] MEDS: DUONEB (A & A) INH PRN (06:20)
[2016-06-11] MEDS: PROTONIX PO SCH (06:26)
[2016-06-11] MEDS: CLINIMIX E 4.25%-5% SOLUTION 1,000 ML IV SCH ×3 (06:26→17:28)
[2016-06-11] MEDS: CARAFATE LIQUID PO SCH ×4 (06:26→21:55)
[2016-06-11] MEDS: SOLU-MEDROL IV SCH ×3 (06:26→21:59)
[2016-06-11] MEDS: VANCOMYCIN 1.5 GM in NS 250 ML IV SCH (06:26)
[2016-06-11 07:11] LABS: BASO% 0.2 % (0.0-0.8); HEMATOCRIT 30.8 % (37.0-47.0); HEMOGLOBIN 11.1 g/dL (12.0-16.0); IMM GRAN# 0.18 X1000 (0.0-0.04); IMM GRAN% 4.3 % (0.0-0.5); LYMPH# 0.14 X1000 (1.2-3.4); LYMPH% 3.4 % (20.5-51.1); MANUAL DIFF NEEDED? YES; MCH 29.8 PG (27-31); MCV 82.6 FL (81-99); MONO% 2.4 % (1.7-9.3); NEUT% 89.7 % (42.2-75.2); PLT 68 X1000 (130-400); RBC 3.73 XMIL (4.2-5.4)
[2016-06-11 07:14] LABS: AGAP 14; BUN 87 mg/dL (8-22); CALCIUM 7.8 mg/dL (8.8-10.2); CHLORIDE 84 mmol/L (98-107); COSMO 284; POTASSIUM 3.4 mmol/L (3.5-5.1); SODIUM 124 mmol/L (136-145); TCO2 26 mmol/L (25-35)
[2016-06-11] MEDS: DUONEB (A & A) INH SCH ×6 (08:20→23:15)
[2016-06-11] MEDS: BREO ELLIPTA 100/25 MCG INH INH SCH (08:26)
[2016-06-11] MEDS: LASIX IV SCH (08:51)
[2016-06-11] MEDS: MARINOL PO SCH ×2 (08:52→21:56)
[2016-06-11] MEDS: ZOFRAN IV SCH ×2 (08:52→21:53)
[2016-06-11] MEDS: MYCOSTATIN SUSP PO SCH ×4 (08:52→21:56)
[2016-06-11] MEDS: ULTRAM PO SCH ×2 (08:52→21:55)
[2016-06-11] MEDS: COREG PO SCH ×2 (08:52→21:55)
[2016-06-11] MEDS: MIRALAX PO SCH (08:52)
[2016-06-11] MEDS: REGLAN IV SCH ×2 (11:06→19:28)
--- NOTE | 2016-06-11 12:29 | PROGRESS NOTE ---
DATE: 06/11/2016 Ms. Springer is an elderly white female who has non-small cell lung cancer including a gastric mass. She is still sick in the stomach. She did not eat anything. Her medications are not helping her. She does not want Carafate. Her sodium was back to 124. We have increased the saline solution and will get supplemental potassium. She is getting Clinimix and also on IV Solu Medrol, IV vancomycin, IV Protonix. We will probably give her some IV Reglan today.
[2016-06-11] MEDS: NS 1,000 ML IV SCH (14:08)
[2016-06-11] MEDS: COMPAZINE IV PRN (14:35)
[2016-06-11] MEDS: MORPHINE IV PRN (14:38)
[2016-06-11] MEDS: MUCOMYST 20% INH SCH ×2 (16:30→20:15)
[2016-06-11] MEDS: NACL 3% 500 ML IV SCH (17:27)
--- NOTE | 2016-06-11 18:41 | PROGRESS NOTE ---
DATE: 06/11/2016 SUBJECTIVE: Patient currently resting in bed. She is uncomfortable. She feels bloated. She has not had a bowel movement for the last 3 days. She has been on laxatives, including Dulcolax, which have failed to produce a bowel movement. She is requesting enemas. OBJECTIVE: Vitals: Temperature 97.3 degrees, pulse of 108, respiratory rate 20, pressure 101/57, saturating 90% on nasal cannula 4 L. General Appearance: Thinly built, lying in bed, in mild distress with abdominal discomfort and bloating. HEENT: Pale conjunctivae. No icterus. Neck: Supple. Abdomen: Mild protuberant abdomen. Tympanic on percussion. Hypoactive bowel sounds. No guarding. No rebound. Extremities: No cyanosis, clubbing. Neurologic: She is awake and answers questions. LABORATORY/DIAGNOSTICS: Hemoglobin and hematocrit is 11.1 and 30.8, white count of 4.15. Platelet count of 68,000, MCV of 82.6. Sodium 124, potassium 3.4, chloride of 84, bicarb of 26, anion gap of 14, BUN of 87, creatinine 0.9, glucose of 234, calcium 7.8, albumin is 1.7. IMPRESSION AND PLAN: 1. Stage IV [id number]-[id number] lung cancer with bleeding gastric mass, currently undergoing palliative radiation therapy to this time by Dr. Moody. She is having poor oral intake, has hypoalbuminemia, has persistent anemia because of ongoing intermittent gastrointestinal bleeding from the bleeding gastric fundic mass. She has been getting transfusions as needed. We will continue on Protonix and Carafate. 2. Constipation and bloating. We will try soapsuds enemas, 2 now and once at bedtime and evaluate response. I will sign for patient to take Ensure 3 times a day. We will continue Clinimix. Patient could not tolerate IV total parenteral nutrition lipids as it made her itchy. 3. I discussed the above plan of care with the patient's family at bedside.
[2016-06-11] MEDS: KLOR-CON PO SCH (21:55)
[2016-06-11] MEDS: AMBIEN PO PRN (21:56)
[2016-06-11] MEDS: PERICOLACE PO SCH (21:58)
[2016-06-12] MEDS: NORCO-5 PO PRN ×4 (00:45→20:12)
[2016-06-12] MEDS: NS 1,000 ML IV SCH ×2 (00:48→06:50)
[2016-06-12] MEDS: DUONEB (A & A) INH PRN ×2 (01:14→09:37)
[2016-06-12] MEDS: LEVAQUIN 500 MG/D5W 100 ML IV SCH (04:07)
[2016-06-12] MEDS: REGLAN IV SCH ×3 (04:07→17:56)
[2016-06-12] MEDS: CLINIMIX E 4.25%-5% SOLUTION 1,000 ML IV SCH (04:08)
[2016-06-12] MEDS: XANAX PO PRN ×3 (05:00→20:12)
[2016-06-12] MEDS: SOLU-MEDROL IV SCH ×4 (06:38→23:53)
[2016-06-12] MEDS: CARAFATE LIQUID PO SCH ×4 (06:38→22:48)
[2016-06-12] MEDS: PROTONIX PO SCH (06:38)
[2016-06-12 07:34] LABS: AGAP 17; BUN 82 mg/dL (8-22); CALCIUM 7.5 mg/dL (8.8-10.2); CHLORIDE 83 mmol/L (98-107); COSMO 280; POTASSIUM 3.3 mmol/L (3.5-5.1); SODIUM 122 mmol/L (136-145); TCO2 22 mmol/L (25-35)
[2016-06-12] MEDS: BREO ELLIPTA 100/25 MCG INH INH SCH (07:41)
[2016-06-12] MEDS: DUONEB (A & A) INH SCH ×4 (07:41→19:20)
[2016-06-12] MEDS ORDERED: POTASSIUM CHLORIDE 40 MEQ/SWI 100 ML IV ONE (08:46)
[2016-06-12] MEDS: MARINOL PO SCH ×2 (08:58→20:13)
[2016-06-12] MEDS: KLOR-CON PO SCH ×2 (08:58→20:12)
[2016-06-12] MEDS ORDERED: POTASSIUM CHLORIDE 20 MEQ/SWI 100 ML IV SCH (09:00)
[2016-06-12] MEDS: LASIX IV SCH (09:00)
[2016-06-12] MEDS: PERICOLACE PO SCH ×2 (09:00→20:12)
[2016-06-12] MEDS: ULTRAM PO SCH ×2 (09:00→20:21)
[2016-06-12] MEDS: COREG PO SCH ×2 (09:01→20:13)
[2016-06-12] MEDS: MIRALAX PO SCH (09:13)
[2016-06-12] MEDS: MYCOSTATIN SUSP PO SCH ×4 (09:13→20:18)
--- NOTE | 2016-06-12 10:30 | PROGRESS NOTE ---
DATE: 06/12/2016 SUBJECTIVE: Patient is currently resting in bed. She had about 12-13 bowel movements after given 2 soapsuds enemas. She is feeling better. Her abdominal bloating is better. PHYSICAL EXAMINATION: Vital Signs: Temperature of 97.7, pulse rate of 99, respiratory rate 18, blood pressure of 115/63, saturating 97% on nasal cannula. General Appearance: Thinly built, lying in bed, in no acute distress. HEENT: Pale conjunctivae. No icterus. Neck: Supple. Abdomen: Softer than before. No guarding. No rebound. Extremities: No cyanosis, clubbing. Neurologic: She was alert and awake. Answers all questions. Family at bedside. LABS: Her sodium is 122, potassium 3.3, chloride of 83, bicarb of 22, anion gap of 17, BUN of 82, creatinine of 0.8, glucose of 265, calcium is 7.5. IMPRESSION AND PLAN: 1. Stage IV non-small lung cancer with bleeding gastric mass, currently undergoing palliative radiation therapy per Dr. Moody. She developed abdominal bloating and distention over the weekend that was relieved by soapsuds enema. We will continue her on gentle laxatives for now. The patient also will continue Protonix and Carafate as before. We encouraged her to increase her oral intake, take Ensure 3 times a day. We will continue Clinimix for now. 2. Hyponatremia. Per the primary care team. 3. Constipation and bloating, improved with soapsuds enema. The above plan was discussed with the patient and family. All questions were answered.
[2016-06-12] MEDS: NACL 3% 500 ML IV SCH (11:51)
[2016-06-12] MEDS: MUCOMYST 20% INH SCH ×2 (12:00→19:21)
[2016-06-12] MEDS: MORPHINE IV PRN ×2 (14:56→22:46)
[2016-06-12] MEDS ORDERED: MORPHINE IV ONE (16:41)
[2016-06-12] MEDS: AMBIEN PO PRN (20:13)
[2016-06-12] MEDS: ZOFRAN IV SCH (22:46)
[2016-06-13] MEDS: NORCO-5 PO PRN ×3 (00:24→16:24)
[2016-06-13] MEDS: DUONEB (A & A) INH SCH ×5 (01:14→20:04)
[2016-06-13] MEDS: DUONEB (A & A) INH PRN (01:14)
[2016-06-13] MEDS: XANAX PO PRN ×3 (02:08→16:34)
[2016-06-13] MEDS: LASIX IV SCH ×2 (04:11→09:08)
[2016-06-13] MEDS: SOLU-MEDROL IV SCH ×3 (04:12→21:34)
[2016-06-13] MEDS: LEVAQUIN 500 MG/D5W 100 ML IV SCH (04:12)
[2016-06-13] MEDS: PROTONIX PO SCH ×2 (04:12→06:19)
[2016-06-13] MEDS: REGLAN IV SCH ×3 (04:12→21:34)
[2016-06-13] MEDS: CARAFATE LIQUID PO SCH ×4 (06:20→21:36)
--- NOTE | 2016-06-13 07:33 | Diag Imaging Result Document ---
PROCEDURE NAME: CHEST-PORTABLE - 06/13/2016 PORTABLE CHEST X-RAY: COMPARISON: 06/09/2016. FINDINGS: Stable left PICC line in good position. Stable dense infiltrate in the right lung base, with streaky infiltrate throughout the right lung. The left lung remains grossly clear. Heart size remains normal. There is worsening effusion at the right lung base. IMPRESSION: Worsening effusion at the right lung base.
[2016-06-13] MEDS: BREO ELLIPTA 100/25 MCG INH INH SCH (07:35)
[2016-06-13] MEDS: MUCOMYST 20% INH SCH ×2 (07:38→20:04)
[2016-06-13 07:48] LABS: AGAP 17; BUN 79 mg/dL (8-22); CHLORIDE 86 mmol/L (98-107); COSMO 284; SODIUM 126 mmol/L (136-145); TCO2 23 mmol/L (25-35)
[2016-06-13 07:59] LABS: BASO% 0.2 % (0.0-0.8); EOS# 0.02 X1000 (0.0-0.7); EOS% 0.3 % (0.0-10.0); HEMOGLOBIN 9.3 g/dL (12.0-16.0); IMM GRAN# 0.08 X1000 (0.0-0.04); IMM GRAN% 1.4 % (0.0-0.5); LYMPH# 0.11 X1000 (1.2-3.4); LYMPH% 1.9 % (20.5-51.1); MANUAL DIFF NEEDED? YES; MCH 29.2 PG (27-31); MCHC 34.4 g/dL (33-37); MCV 84.6 FL (81-99); MONO# 0.34 X1000 (0.11-0.59); MONO% 5.8 % (1.7-9.3); NEUT% 90.4 % (42.2-75.2); PLT 79 X1000 (130-400); RBC 3.19 XMIL (4.2-5.4)
[2016-06-13 08:29] LABS: BANDS 16 % (0-1); LYMPHS 2 % (21-51); MONO 2 % (1-9)
[2016-06-13] MEDS: COREG PO SCH ×2 (09:08→21:34)
[2016-06-13] MEDS: MARINOL PO SCH ×2 (09:08→21:35)
[2016-06-13] MEDS: KLOR-CON PO SCH ×2 (09:08→21:35)
[2016-06-13] MEDS: PERICOLACE PO SCH ×2 (09:09→21:35)
[2016-06-13] MEDS: MIRALAX PO SCH (09:09)
[2016-06-13] MEDS: ULTRAM PO SCH ×2 (09:09→21:34)
[2016-06-13] MEDS: MYCOSTATIN SUSP PO SCH ×4 (09:10→21:35)
[2016-06-13] MEDS: ZOFRAN IV SCH ×2 (09:10→21:35)
[2016-06-13] MEDS: VANCOMYCIN 1.5 GM in NS 250 ML IV SCH (09:27)
[2016-06-13] MEDS ORDERED: CALMOSEPTINE OINTMENT TOP PRN (10:53)
[2016-06-13] MEDS ORDERED: EFFEXOR XR PO ONE (13:18)
[2016-06-13] MEDS: COMPAZINE IV PRN (14:33)
[2016-06-13] MEDS ORDERED: NS 500 ML ONE (16:00)
[2016-06-13] MEDS: AMBIEN PO PRN (21:34)
[2016-06-14] MEDS: NORCO-5 PO PRN ×2 (00:15→06:00)
[2016-06-14] MEDS: REGLAN IV SCH ×4 (01:54→20:09)
[2016-06-14] MEDS: MORPHINE IV PRN ×3 (01:54→20:45)
[2016-06-14] MEDS: LEVAQUIN 500 MG/D5W 100 ML IV SCH (04:15)
[2016-06-14] MEDS: SOLU-MEDROL IV SCH ×3 (04:15→20:07)
[2016-06-14] MEDS: DUONEB (A & A) INH SCH ×6 (05:45→23:51)
[2016-06-14] MEDS: ZOFRAN IV SCH ×3 (06:00→17:26)
[2016-06-14] MEDS: CARAFATE LIQUID PO SCH ×4 (06:00→20:06)
[2016-06-14] MEDS: PROTONIX PO SCH (06:00)
[2016-06-14] MEDS: MUCOMYST 20% INH SCH ×2 (07:38→19:22)
[2016-06-14] MEDS: BREO ELLIPTA 100/25 MCG INH INH SCH (07:39)
[2016-06-14 07:54] LABS: AGAP 13; BUN 70 mg/dL (8-22); CALCIUM 7.7 mg/dL (8.8-10.2); CHLORIDE 93 mmol/L (98-107); COSMO 290; POTASSIUM 3.6 mmol/L (3.5-5.1); SODIUM 131 mmol/L (136-145); TCO2 25 mmol/L (25-35)
[2016-06-14 08:33] LABS: BASO% 0.3 % (0.0-0.8); EOS# 0.01 X1000 (0.0-0.7); EOS% 0.1 % (0.0-10.0); HEMATOCRIT 31.7 % (37.0-47.0); IMM GRAN# 0.06 X1000 (0.0-0.04); IMM GRAN% 0.9 % (0.0-0.5); LYMPH# 0.11 X1000 (1.2-3.4); LYMPH% 1.6 % (20.5-51.1); MANUAL DIFF NEEDED? YES; MCH 29.5 PG (27-31); MCHC 34.7 g/dL (33-37); MONO# 0.55 X1000 (0.11-0.59); MPV 13.2 FL (7.4-10.4); NEUT% 89.1 % (42.2-75.2); PLT 70 X1000 (130-400); RBC 3.73 XMIL (4.2-5.4)
[2016-06-14 08:36] LABS: BANDS 12 % (0-1); LYMPHS 4 % (21-51); MONO 4 % (1-9)
[2016-06-14] MEDS ORDERED: NARCAN IV PRN (08:45)
[2016-06-14] MEDS ORDERED: DILAUDID PCA VIAL IV PRN (08:45)
[2016-06-14] MEDS ORDERED: LR 1,000 ML ONE (08:59)
[2016-06-14] MEDS: XANAX PO PRN ×2 (09:14→20:12)
[2016-06-14] MEDS: LASIX IV SCH (09:19)
[2016-06-14] MEDS: COREG PO SCH ×2 (09:20→20:12)
[2016-06-14] MEDS: KLOR-CON PO SCH ×2 (09:20→20:13)
[2016-06-14] MEDS: MYCOSTATIN SUSP PO SCH ×4 (09:20→20:17)
[2016-06-14] MEDS: MIRALAX PO SCH (09:20)
[2016-06-14] MEDS: EFFEXOR XR PO SCH (09:20)
[2016-06-14] MEDS: PERICOLACE PO SCH ×2 (09:21→20:07)
[2016-06-14] MEDS: MARINOL PO SCH ×2 (09:25→20:13)
[2016-06-14] MEDS: COMPAZINE IV PRN (09:28)
[2016-06-14] MEDS: ULTRAM PO SCH ×2 (09:32→20:08)
[2016-06-14] MEDS: NACL 3% 500 ML IV SCH ×2 (11:00→11:19)
--- NOTE | 2016-06-14 15:36 | PROGRESS NOTE ---
DATE: 06/14/2016 SUBJECTIVE: The patient is currently resting in bed. She continues to have poor oral intake. She has had a bowel movement today. She got 1 unit of blood transfusion yesterday. OBJECTIVE: Vital signs: Temperature 97.5, pulse of 99, respiratory rate of 16, blood pressure 130/59, saturating 98% in room air. General Appearance: Thinly built, lying in bed, in no acute distress. HEENT: Pale conjunctivae. No icterus. Neck: Was supple. Abdomen: Soft, nontender, nondistended. Extremities: No cyanosis or clubbing. Neurologic: She is alert, and awake, and answers questions. LABS: Her hemoglobin and hematocrit is 11 and 31.7, white count 6.8, platelet count 70,000. Sodium 137, potassium 3.6, chloride 93, bicarbonate 25, anion gap 13, BUN of 17, creatinine 0.8, glucose of 2.3 from 7.7. IMPRESSION AND PLAN: 1. Stage IV non-small cell lung cancer with bleeding gastric mass currently undergoing palliative radiation therapy day [address] Moody. Her appetite has been poor. She is eating very little. Her constipation and bloating has improved with laxatives. The patient had developed tachycardia with IV lipids. I think we will call Nutrition consultation for possible TPN. 2. Hyponatremia. Improving. 3. Gastrointestinal prophylaxis. To continue with Protonix. 4. Anemia. Continue to watch.
[2016-06-14] MEDS ORDERED: CLINIMIX E 4.25%-5% SOLUTION 1,000 ML IV SCH (16:30)
[2016-06-14 16:36] LABS: ALBUMIN 1.5 g/dL (3.5-5.0); DIRECT BILIRUBIN 0.9 mg/dL (0.00-0.20); MAGNESIUM 1.4 mg/dL (1.5-2.7); TOTAL PROTEIN 3.4 g/dL (6.3-8.3)
[2016-06-14] MEDS: COMPAZINE IV SCH ×2 (17:27→20:07)
[2016-06-14 17:47] LABS: TOTAL BILIRUBIN 1.21 mg/dL (0.20-1.00)
[2016-06-14] MEDS ORDERED: LIPOSYN 20% 250 ML IV SCH (18:00)
[2016-06-14] MEDS ORDERED: D10W 1,000 ML IV PRN (18:00)
[2016-06-14] MEDS ORDERED: MAGNESIUM SULFATE 2 GM/S.W.I. 50 ML IV ONE (18:42)
--- NOTE | 2016-06-14 18:42 | PROGRESS NOTE ---
DATE: 06/13/2016 SUBJECTIVE: The patient is resting well, feeling better, much relieved after having a good bowel movement. PHYSICAL EXAMINATION: Vital Signs: Stable with temp of 97 degrees, pulse of 90, respirations 18, blood pressure 115/60, saturation is 97% on 2 L. General: Thinly built, lying in bed, in no acute distress. HEENT: Conjunctival pallor present. No icterus. Neck: Supple. Trachea midline. Heart: . Lungs: Normal. Abdomen: No guarding, no rebound, no rigidity, no ascites. Bowel sounds are present and normal. Extremities: No cyanosis or clubbing. Neurological: Alert, awake, oriented. LABS: Sodium is low at 122, potassium was low at 3.3, chloride is low. The rest of the labs are normal. Glucose is high at 261. IMPRESSION: 1. Stage IV non-small cell lung cancer with a bleeding gastric mass. She is getting currently palliative radiation. 2. Hyponatremia. 3. Constipation which has improved. They will continue treating the constipation. 4. Palliative Care will follow.
[2016-06-14] MEDS: TPN ELECTROLYTES 20 ML, MAGNESIUM SULFATE 5 MEQ, POTASSIUM CHLORIDE 20 MEQ, SODIUM PHOS... IV SCH ×8 (19:16)
[2016-06-14] MEDS: AMBIEN PO PRN (20:17)
[2016-06-15] MEDS: NORCO-5 PO PRN ×3 (00:08→23:46)
[2016-06-15] MEDS: COMPAZINE IV SCH ×6 (00:10→23:33)
[2016-06-15] MEDS: LEVAQUIN 500 MG/D5W 100 ML IV SCH (03:43)
[2016-06-15] MEDS: SOLU-MEDROL IV SCH ×3 (03:44→21:19)
[2016-06-15] MEDS: XANAX PO PRN ×3 (03:44→21:18)
[2016-06-15] MEDS: REGLAN IV SCH ×3 (03:44→21:19)
[2016-06-15] MEDS: PROTONIX PO SCH ×2 (03:44→06:21)
[2016-06-15] MEDS: MORPHINE IV PRN ×2 (03:45→21:15)
[2016-06-15] MEDS: ZOFRAN IV SCH ×2 (03:45→17:37)
[2016-06-15] MEDS: CARAFATE LIQUID PO SCH ×4 (06:21→21:18)
--- NOTE | 2016-06-15 06:33 | Diag Imaging Result Document ---
PROCEDURE NAME: CHEST-1 VIEW - 06/15/2016 PORTABLE CHEST: COMPARISON: Compared to 06/13/2016. FINDINGS: There are dense infiltrates throughout the right lung and there is a right-sided pleural effusion. The patient has a left-sided PICC line. The heart is not enlarged. The left lung remains clear. No left-sided effusion is identified. The overall appearance of the chest is similar to that of the prior exam. IMPRESSION: No interval improvement.
[2016-06-15 06:57] LABS: BASO% 0.3 % (0.0-0.8); EOS# 0.04 X1000 (0.0-0.7); EOS% 1.1 % (0.0-10.0); HEMATOCRIT 30.8 % (37.0-47.0); HEMOGLOBIN 10.5 g/dL (12.0-16.0); IMM GRAN# 0.03 X1000 (0.0-0.04); IMM GRAN% 0.8 % (0.0-0.5); LYMPH# 0.16 X1000 (1.2-3.4); LYMPH% 4.4 % (20.5-51.1); MANUAL DIFF NEEDED? YES; MCH 29.1 PG (27-31); MCHC 34.1 g/dL (33-37); MCV 85.3 FL (81-99); MONO# 0.49 X1000 (0.11-0.59); MONO% 13.4 % (1.7-9.3); PLT 67 X1000 (130-400); RBC 3.61 XMIL (4.2-5.4)
[2016-06-15 07:22] LABS: AGAP 15; BUN 70 mg/dL (8-22); CALCIUM 7.8 mg/dL (8.8-10.2); CHLORIDE 90 mmol/L (98-107); COSMO 286; SODIUM 126 mmol/L (136-145); TCO2 21 mmol/L (25-35)
[2016-06-15 07:36] LABS: BANDS 2 % (0-1); LYMPHS 8 % (21-51); MONO 2 % (1-9)
[2016-06-15] MEDS: MUCOMYST 20% INH SCH (07:40)
[2016-06-15] MEDS: BREO ELLIPTA 100/25 MCG INH INH SCH (07:42)
[2016-06-15] MEDS: DUONEB (A & A) INH SCH ×4 (07:42→20:03)
[2016-06-15] MEDS: SODIUM CHLORIDE 0.9% INJ PRN (09:30)
[2016-06-15] MEDS: PHENERGAN IV PRN (09:31)
[2016-06-15] MEDS: KLOR-CON PO SCH ×2 (10:51→21:18)
[2016-06-15] MEDS: PERICOLACE PO SCH ×2 (10:52→21:18)
[2016-06-15] MEDS: EFFEXOR XR PO SCH (10:52)
[2016-06-15] MEDS: COREG PO SCH (10:52)
[2016-06-15] MEDS: MARINOL PO SCH ×2 (10:52→21:17)
[2016-06-15] MEDS: ULTRAM PO SCH ×2 (10:52→21:18)
[2016-06-15] MEDS: MIRALAX PO SCH (10:53)
[2016-06-15] MEDS: VANCOMYCIN 1.5 GM in NS 250 ML IV SCH (10:53)
[2016-06-15] MEDS: LASIX IV SCH (10:53)
[2016-06-15] MEDS: MYCOSTATIN SUSP PO SCH ×4 (10:53→21:20)
--- NOTE | 2016-06-15 12:58 | PROGRESS NOTE ---
DATE: 06/15/2016 SUBJECTIVE: The patient is resting in bed. She still has a poor appetite. She complains of nausea despite being on 3 antiemetics. OBJECTIVE: Vital Signs: Temperature of 97.4 degrees, respiratory rate 18, blood pressure of 123/60, saturating 97% on nasal cannula oxygen. General Appearance: Thinly built, lying in bed, in mild distress with nausea. HEENT: Pale conjunctivae. No icterus. Neck: Supple. Abdomen: Soft, nontender, nondistended. Extremities: No cyanosis, clubbing. Neurologic: She is alert, awake, oriented.. LABORATORY DATA: Hemoglobin and hematocrit are 10.5 and 30.8, white count 3.6, platelet count of 67,000. Sodium 122, potassium 3, chloride of 90, bicarbonate 21, anion gap of 15, BUN of 17, creatinine 0.9, glucose of 312, calcium 7.8, total bilirubin is 1.21 and direct of 0.9, AST 20, ALT 10, alkaline phosphatase 181, total protein 3.4, albumin 1.5, magnesium 1.4 , phosphorus 3.9. She was started on TPN yesterday. We will follow up on electrolytes. IMPRESSION AND PLAN: 1. Stage IV [id number] lung cancer with bleeding gastric mass. Currently, hematocrit is stable. 2. Malnutrition with albumin of 1.5. We will start her on total parenteral nutrition and keep a watch on her electrolytes and labs with the help of the dietitian. 3. Hyponatremia. Continue as per the primary team. 4. Constipation, which is improved. 5. Nausea: Continue Antiemetics. 6. Above plan was discussed with the patient and all questions answered. [facility]
[2016-06-15 13:29] LABS: AGAP 16; BUN 67 mg/dL (8-22); CALCIUM 7.7 mg/dL (8.8-10.2); CHLORIDE 90 mmol/L (98-107); COSMO 293; GOT 15 U/L (10-30); MAGNESIUM 1.7 mg/dL (1.5-2.7); POTASSIUM 3.1 mmol/L (3.5-5.1); SODIUM 130 mmol/L (136-145); TCO2 24 mmol/L (25-35); TRIGLYCERIDES 249 mg/dL (35-135)
[2016-06-15 14:27] LABS: PREALBUMIN 9.3 mg/dL (20-40)
[2016-06-15] MEDS ORDERED: NS 500 ML ONE (15:08)
[2016-06-15 16:12] LABS: HEMATOCRIT 28.6 % (37.0-47.0); HEMOGLOBIN 9.8 g/dL (12.0-16.0)
[2016-06-15] MEDS: TPN ELECTROLYTES 20 ML, MAGNESIUM SULFATE 5 MEQ, POTASSIUM CHLORIDE 20 MEQ, SODIUM PHOS... IV SCH ×16 (21:02→21:16)
[2016-06-15] MEDS: POTASSIUM CHLORIDE 60 MEQ in NS 500 ML IV SCH (21:15)
[2016-06-15] MEDS: AMBIEN PO PRN (21:17)
[2016-06-16] MEDS: PHENERGAN IV PRN ×2 (03:23→14:20)
[2016-06-16] MEDS: SODIUM CHLORIDE 0.9% INJ PRN (03:23)
[2016-06-16] MEDS: POTASSIUM CHLORIDE 60 MEQ in NS 500 ML IV SCH (03:27)
[2016-06-16] MEDS: SOLU-MEDROL IV SCH ×3 (06:11→22:40)
[2016-06-16] MEDS: PROTONIX PO SCH (06:11)
[2016-06-16] MEDS: MORPHINE IV PRN (06:13)
[2016-06-16] MEDS: LEVAQUIN 500 MG/D5W 100 ML IV SCH (06:14)
[2016-06-16] MEDS: REGLAN IV SCH ×3 (06:14→22:40)
[2016-06-16] MEDS: ZOFRAN IV SCH ×2 (06:15→16:09)
[2016-06-16] MEDS: COMPAZINE IV SCH ×4 (06:15→22:36)
[2016-06-16] MEDS: CARAFATE LIQUID PO SCH ×4 (06:16→22:40)
[2016-06-16 06:58] LABS: AGAP 12; BUN 63 mg/dL (8-22); CALCIUM 7.6 mg/dL (8.8-10.2); CHLORIDE 95 mmol/L (98-107); COSMO 295; MAGNESIUM 1.6 mg/dL (1.5-2.7); POTASSIUM 4.9 mmol/L (3.5-5.1); SODIUM 129 mmol/L (136-145); TCO2 22 mmol/L (25-35)
[2016-06-16] MEDS ORDERED: HUMALOG SUBQ ONE (07:39)
[2016-06-16] MEDS: BREO ELLIPTA 100/25 MCG INH INH SCH (08:09)
[2016-06-16] MEDS: DUONEB (A & A) INH SCH ×5 (08:09→23:48)
[2016-06-16] MEDS: MUCOMYST 20% INH SCH ×2 (08:09→20:22)
[2016-06-16] MEDS: KLOR-CON PO SCH ×2 (08:57→22:41)
[2016-06-16] MEDS: EFFEXOR XR PO SCH (08:57)
[2016-06-16] MEDS: ULTRAM PO SCH ×2 (08:57→22:47)
[2016-06-16] MEDS: PERICOLACE PO SCH ×2 (08:57→22:40)
[2016-06-16] MEDS: LASIX IV SCH (08:58)
[2016-06-16] MEDS: MIRALAX PO SCH (09:05)
[2016-06-16] MEDS: MARINOL PO SCH ×2 (09:15→22:47)
[2016-06-16] MEDS: XANAX PO PRN (09:42)
[2016-06-16] MEDS ORDERED: LIPOSYN 20% 250 ML IV SCH (10:15)
[2016-06-16 10:26] LABS: BASO% 0.3 % (0.0-0.8); HEMATOCRIT 28.8 % (37.0-47.0); HEMOGLOBIN 10.1 g/dL (12.0-16.0); IMM GRAN# 0.06 X1000 (0.0-0.04); IMM GRAN% 1.6 % (0.0-0.5); LYMPH# 0.15 X1000 (1.2-3.4); MANUAL DIFF NEEDED? YES; MCH 30.1 PG (27-31); MCHC 35.1 g/dL (33-37); MONO# 0.53 X1000 (0.11-0.59); NEUT% 80.1 % (42.2-75.2); PLT 56 X1000 (130-400); RBC 3.35 XMIL (4.2-5.4)
[2016-06-16 11:20] LABS: ALBUMIN 1.4 g/dL (3.5-5.0); DIRECT BILIRUBIN 0.6 mg/dL (0.00-0.20); TOTAL BILIRUBIN 0.9 mg/dL (0.20-1.00); TOTAL PROTEIN 3.7 g/dL (6.3-8.3)
[2016-06-16 11:50] LABS: BANDS 10 % (0-1); LYMPHS 4 % (21-51); MONO 16 % (1-9)
[2016-06-16] MEDS: HUMALOG SUBQ SCH ×3 (12:46→23:10)
[2016-06-16] MEDS: MYCOSTATIN SUSP PO SCH ×4 (12:50→23:11)
[2016-06-16] MEDS: NORCO-5 PO PRN (16:10)
[2016-06-16] MEDS: AMBIEN PO PRN (22:41)
[2016-06-16] MEDS: LIPOSYN 20% 250 ML IV SCH (22:56)
[2016-06-16] MEDS: MAGNESIUM SULFATE IV SCH ×8 (22:57)
[2016-06-16] MEDS: TPN ELECTROLYTES IV SCH ×8 (22:57)
[2016-06-16] MEDS: POTASSIUM CHLORIDE IV SCH ×8 (22:57)
[2016-06-16] MEDS: [UNRECOGNIZED DRUG - OTHER] IV SCH ×8 (22:57)
[2016-06-17] MEDS: SODIUM CHLORIDE 0.9% INJ PRN (03:24)
[2016-06-17] MEDS: LEVAQUIN 500 MG/D5W 100 ML IV SCH (03:24)
[2016-06-17] MEDS: PHENERGAN IV PRN ×2 (03:24→22:41)
[2016-06-17] MEDS: XANAX PO PRN ×2 (04:22→14:49)
[2016-06-17] MEDS: MORPHINE IV PRN ×4 (04:29→21:11)
[2016-06-17] MEDS: ZOFRAN IV SCH ×2 (04:31→17:11)
[2016-06-17] MEDS: SOLU-MEDROL IV SCH ×3 (04:31→21:09)
[2016-06-17] MEDS: COMPAZINE IV SCH ×3 (04:31→17:12)
[2016-06-17] MEDS: REGLAN IV SCH ×3 (04:50→21:09)
[2016-06-17] MEDS: NORCO-5 PO PRN (05:48)
[2016-06-17] MEDS: CARAFATE LIQUID PO SCH ×4 (06:08→21:10)
[2016-06-17] MEDS: PROTONIX PO SCH (06:09)
[2016-06-17] MEDS: HUMALOG SUBQ SCH ×4 (06:09→21:12)
[2016-06-17 06:34] LABS: BASO% 0.2 % (0.0-0.8); HEMATOCRIT 27.9 % (37.0-47.0); HEMOGLOBIN 9.8 g/dL (12.0-16.0); IMM GRAN# 0.25 X1000 (0.0-0.04); IMM GRAN% 4.9 % (0.0-0.5); LYMPH# 0.18 X1000 (1.2-3.4); LYMPH% 3.5 % (20.5-51.1); MANUAL DIFF NEEDED? YES; MCH 30.3 PG (27-31); MCHC 35.1 g/dL (33-37); MCV 86.4 FL (81-99); MONO# 0.66 X1000 (0.11-0.59); MONO% 12.9 % (1.7-9.3); MPV 12.7 FL (7.4-10.4); NEUT% 78.5 % (42.2-75.2); PLT 59 X1000 (130-400); RBC 3.23 XMIL (4.2-5.4)
[2016-06-17 06:39] LABS: AGAP 15; BUN 66 mg/dL (8-22); CALCIUM 7.6 mg/dL (8.8-10.2); CHLORIDE 93 mmol/L (98-107); COSMO 291; MAGNESIUM 1.5 mg/dL (1.5-2.7); SODIUM 128 mmol/L (136-145); TCO2 20 mmol/L (25-35)
[2016-06-17 07:19] LABS: BANDS 18 % (0-1); MONO 8 % (1-9)
--- NOTE | 2016-06-17 07:28 | PROGRESS NOTE ---
DATE: 06/17/2016 SUBJECTIVE: I am seeing the patient in coverage for Dr. Chan. Patient is not sleeping more than a couple hours at a time at night. Seems to respond briefly to the Ambien but then does not stay asleep very long. The daughter wants her antiemetics staggered and is concerned about different forms of pain medications the patient has. Patient has had some mild confusion. The patient has had some worsening in her breathing here the last few hours per daughter's report and patient reported. OBJECTIVE: Vital Signs: Afebrile pulse 128, respirations 32, BP 123/66, O2 saturation 90% on nasal cannula. I/O's 1012 in, 2600 out. General: Not eating. Remains on TPN. CV: Tachycardia. Regular rhythm. Lungs: Fairly clear on the left. On the right, rhonchi and wheezes prominent with decreased breath sounds right lung base. Abdomen: No pinpoint tenderness. Extremities: 1 to 2+ lower extremity edema. No cords. Neuro: Patient is alert. She responds well. She is not hallucinating. She is not particularly confused at this point. LABORATORY STUDIES: Sodium 128, potassium 4.0, chloride 93, CO2 20, BUN 66, creatinine 0.8, glucose 363. White count 5.11, hemoglobin 9.8, platelets 59,000. ASSESSMENT: 1. 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 2. History of gastrointestinal bleed with gastric metastasis, now stable on proton pump inhibitor. 3. Severe nausea. 4. Anemia. Stabilized after transfusions. 5. Malnutrition. 6. Depression. PLAN: We will try to stagger her antiemetics and we will try to simplify her pain control regimen. I will increase her Ambien from 5-10 mg nightly. She will continue TPN. IV steroids, nebulizer treatments, Marinol, IV Levaquin and vancomycin. Increase Lasix from 20 to 40 mg daily, monitoring her potassium closely. Repeat chest x-ray LUIS FELIPE due to her slight worsening in breathing.
[2016-06-17] MEDS: MUCOMYST 20% INH SCH ×2 (07:35→19:15)
[2016-06-17] MEDS: DUONEB (A & A) INH SCH ×5 (07:35→23:14)
[2016-06-17] MEDS: BREO ELLIPTA 100/25 MCG INH INH SCH (07:36)
[2016-06-17] MEDS: LASIX IV SCH (08:00)
--- NOTE | 2016-06-17 08:44 | Diag Imaging Result Document ---
PROCEDURE NAME: CHEST-PORTABLE - 06/17/2016 PORTABLE CHEST: COMPARISON: 06/15/2016. FINDINGS: There are infiltrate and pleural fluid on the right. These appear to have increased mildly, primarily at the right base. The left lung appears essentially clear. There is no pneumothorax seen. PICC line remains in place. IMPRESSION: Mild increase in infiltrate and pleural fluid on the right.
[2016-06-17] MEDS: ULTRAM PO SCH ×2 (09:18→21:10)
[2016-06-17] MEDS: MARINOL PO SCH ×2 (09:18→21:10)
[2016-06-17] MEDS: MIRALAX PO SCH (09:19)
[2016-06-17] MEDS: EFFEXOR XR PO SCH (09:19)
[2016-06-17] MEDS: PERICOLACE PO SCH ×2 (09:19→21:10)
[2016-06-17] MEDS: KLOR-CON PO SCH ×2 (09:19→21:10)
[2016-06-17] MEDS: MYCOSTATIN SUSP PO SCH ×4 (09:20→21:11)
--- NOTE | 2016-06-17 10:05 | PROGRESS NOTE ---
DATE: 06/16/2016 SUBJECTIVE: The patient is resting in bed. Poor appetite. Continued nausea when I entered the patient's room. The patient does have a small amount of melenic stool in her Depends, which is being cleaned. OBJECTIVE: Vital signs: Stable. Conjunctival pallor present. O2 saturation 97%. Neck: Supple. Trachea midline. Abdomen: Nontender and nondistended. Extremities: No cyanosis, clubbing. Neurologic: Alert, awake, oriented and very frail. LABORATORY DATA: Hemoglobin and hematocrit stable at 10.5 and 30. White count 3.6, platelets 67, sodium low at 122, potassium 3, glucose 312. Bilirubin 1.21, alkaline phosphatase 181, magnesium low at 1.4. IMPRESSION AND PLAN: 1. Stage IV non small cell lung cancer with metastatic gastric mass with bleeding currently. No signs of active bleeding. 2. Malnutrition. Started on total parenteral nutrition. 3. Hyponatremia being corrected. 4. Constipation, improved. 5. Continued nausea on antiemetic. Talked to the daughter and she understands the grim situation of her problems.
[2016-06-17] MEDS: VANCOMYCIN 1.5 GM in NS 250 ML IV SCH (11:03)
[2016-06-17] MEDS: MAGNESIUM SULFATE IV SCH ×8 (22:41)
[2016-06-17] MEDS: [UNRECOGNIZED DRUG - OTHER] IV SCH ×8 (22:41)
[2016-06-17] MEDS: TPN ELECTROLYTES IV SCH ×8 (22:41)
[2016-06-17] MEDS: POTASSIUM CHLORIDE IV SCH ×8 (22:41)
[2016-06-17] MEDS: LIPOSYN 20% 250 ML IV SCH (22:42)
[2016-06-18] MEDS: COMPAZINE IV SCH ×5 (00:06→21:55)
[2016-06-18] MEDS: MORPHINE IV PRN ×4 (02:56→23:42)
[2016-06-18] MEDS: SOLU-MEDROL IV SCH ×3 (03:46→21:54)
[2016-06-18] MEDS: LEVAQUIN 500 MG/D5W 100 ML IV SCH (03:46)
[2016-06-18] MEDS: ZOFRAN IV SCH ×2 (03:46→18:19)
[2016-06-18] MEDS: REGLAN IV SCH ×3 (03:47→21:56)
[2016-06-18] MEDS: PROTONIX PO SCH (06:15)
[2016-06-18] MEDS: CARAFATE LIQUID PO SCH ×4 (06:15→21:55)
[2016-06-18 06:18] LABS: BASO% 0.3 % (0.0-0.8); HEMATOCRIT 28.5 % (37.0-47.0); HEMOGLOBIN 9.8 g/dL (12.0-16.0); IMM GRAN% 4.1 % (0.0-0.5); LYMPH# 0.29 X1000 (1.2-3.4); MANUAL DIFF NEEDED? YES; MCH 29.8 PG (27-31); MCHC 34.4 g/dL (33-37); MCV 86.6 FL (81-99); MONO# 1.06 X1000 (0.11-0.59); MONO% 10.8 % (1.7-9.3); NEUT% 81.8 % (42.2-75.2); PLT 71 X1000 (130-400); RBC 3.29 XMIL (4.2-5.4)
[2016-06-18 06:32] LABS: BANDS 2 % (0-1); LYMPHS 4 % (21-51); MONO 8 % (1-9)
[2016-06-18] MEDS: HUMALOG SUBQ SCH ×4 (06:39→21:56)
[2016-06-18 06:52] LABS: AGAP 14; BUN 63 mg/dL (8-22); CALCIUM 7.9 mg/dL (8.8-10.2); CHLORIDE 92 mmol/L (98-107); COSMO 291; MAGNESIUM 1.6 mg/dL (1.5-2.7); POTASSIUM 3.7 mmol/L (3.5-5.1); SODIUM 129 mmol/L (136-145); TCO2 23 mmol/L (25-35)
[2016-06-18] MEDS: MUCOMYST 20% INH SCH ×2 (07:25→19:30)
[2016-06-18] MEDS: DUONEB (A & A) INH SCH ×5 (07:25→23:34)
[2016-06-18] MEDS: BREO ELLIPTA 100/25 MCG INH INH SCH (07:26)
[2016-06-18] MEDS: ULTRAM PO SCH ×2 (10:39→21:54)
[2016-06-18] MEDS: KLOR-CON PO SCH ×2 (10:39→21:53)
[2016-06-18] MEDS: EFFEXOR XR PO SCH (10:39)
[2016-06-18] MEDS: MARINOL PO SCH ×2 (10:39→21:55)
[2016-06-18] MEDS: XANAX PO PRN ×2 (10:39→21:55)
[2016-06-18] MEDS: MYCOSTATIN SUSP PO SCH ×4 (10:40→21:57)
[2016-06-18] MEDS: LASIX IV SCH (10:40)
[2016-06-18] MEDS: MIRALAX PO SCH (10:40)
[2016-06-18] MEDS: PERICOLACE PO SCH ×2 (10:41→21:53)
--- NOTE | 2016-06-18 11:27 | PROGRESS NOTE ---
DATE: 06/18/2016 SUBJECTIVE: Patient continues to lay on her right side only. She cannot get comfortable in other positions. This does seem to be hindering her care somewhat. Despite doubling her Ambien, she did not sleep well last night. She is still having on going de la cruz with nausea. Confusion has seemed to resolve. She is alert and attentive and answers questions appropriately this morning. OBJECTIVE: Vital Signs: Afebrile. Pulse 120, respirations 20, blood pressure 138/77, O2 saturation on oxygen at 4 L is 91% to 95%. Cardiovascular: RRR. Lungs: Pronounced rhonchi on the right lung and left lung field clear. I's and O's show 1108 in and 2225 out. Extremities: 2 to 3+ foot edema. 2+ lower extremity edema. LABORATORY STUDIES: Sodium 129, potassium 3.7, chloride 92, CO2 23, BUN 63, creatinine 0.8, calcium 7.9, phosphorus 3.5, magnesium 1.6. White blood cell count 9.8, hemoglobin 9.8, hematocrit 28.5, platelets 71,000. Chest x-ray yesterday revealed slight worsening in right lung infiltrate and pleural effusion. ASSESSMENT: 1. Metastatic non-small cell carcinoma of the lung with gastric metastases. 2. History of gastrointestinal bleed with gastric metastasis, now stable on proton pump inhibitor. 3. Severe nausea. 4. Anemia, stable. 5. Malnutrition. 6. Hyponatremia associated with diuretics. 7. Depression. PLAN: Continue antibiotics with staggering of their administration. Continue pain control. Discussed with the patient to try to rollover on her back some to help with aeration of the right lung. That may be quite difficult. Continue Ambien 10 mg nightly for sleep. Continue TPN, IV steroids, nebulizer treatments, Marinol, IV antibiotics in the form of Levaquin and vancomycin. Continue Lasix at 40 mg daily. Monitoring potassium and electrolytes closely. Continue to support vigorously.
[2016-06-18] MEDS: PHENERGAN IV PRN (14:51)
[2016-06-18] MEDS: LIPOSYN 20% 250 ML IV SCH (22:03)
[2016-06-18] MEDS: POTASSIUM CHLORIDE IV SCH ×8 (22:03)
[2016-06-18] MEDS: [UNRECOGNIZED DRUG - OTHER] IV SCH ×8 (22:03)
[2016-06-18] MEDS: TPN ELECTROLYTES IV SCH ×8 (22:03)
[2016-06-18] MEDS: MAGNESIUM SULFATE IV SCH ×8 (22:03)
[2016-06-19] MEDS: PHENERGAN IV PRN (00:31)
[2016-06-19] MEDS: LEVAQUIN 500 MG/D5W 100 ML IV SCH (03:33)
[2016-06-19] MEDS: COMPAZINE IV SCH ×4 (04:01→22:10)
[2016-06-19] MEDS: XANAX PO PRN ×2 (04:01→13:46)
[2016-06-19] MEDS: ZOFRAN IV SCH ×2 (04:01→17:34)
[2016-06-19] MEDS: SOLU-MEDROL IV SCH ×2 (04:02→22:09)
[2016-06-19] MEDS: REGLAN IV SCH ×3 (04:34→22:10)
[2016-06-19] MEDS: CARAFATE LIQUID PO SCH ×4 (06:27→22:09)
[2016-06-19] MEDS: PROTONIX PO SCH (06:27)
[2016-06-19] MEDS: HUMALOG SUBQ SCH ×4 (06:30→22:34)
[2016-06-19 07:14] LABS: BASO% 1.4 % (0.0-0.8); HEMATOCRIT 25.3 % (37.0-47.0); HEMOGLOBIN 8.7 g/dL (12.0-16.0); LYMPH# 0.38 X1000 (1.2-3.4); LYMPH% 3.2 % (20.5-51.1); MANUAL DIFF NEEDED? YES; MCH 29.7 PG (27-31); MCHC 34.4 g/dL (33-37); MCV 86.3 FL (81-99); MONO# 0.99 X1000 (0.11-0.59); MONO% 8.2 % (1.7-9.3); MPV 12.9 FL (7.4-10.4); NEUT% 82.2 % (42.2-75.2); PLT 56 X1000 (130-400); RBC 2.93 XMIL (4.2-5.4)
[2016-06-19 07:33] LABS: AGAP 14; BUN 66 mg/dL (8-22); CALCIUM 7.4 mg/dL (8.8-10.2); CHLORIDE 90 mmol/L (98-107); COSMO 291; MAGNESIUM 1.6 mg/dL (1.5-2.7); POTASSIUM 3.7 mmol/L (3.5-5.1); SODIUM 127 mmol/L (136-145); TCO2 23 mmol/L (25-35)
[2016-06-19 07:58] LABS: BANDS 14 % (0-1); LYMPHS 4 % (21-51); MONO 6 % (1-9)
[2016-06-19] MEDS: DUONEB (A & A) INH SCH ×5 (08:03→23:15)
[2016-06-19] MEDS: MUCOMYST 20% INH SCH ×2 (08:03→20:37)
[2016-06-19] MEDS: BREO ELLIPTA 100/25 MCG INH INH SCH (08:12)
[2016-06-19] MEDS ORDERED: NS 500 ML IV ONE (08:43)
[2016-06-19] MEDS: LASIX IV SCH (09:50)
[2016-06-19] MEDS: EFFEXOR XR PO SCH (09:50)
[2016-06-19] MEDS: KLOR-CON PO SCH ×2 (09:50→22:09)
[2016-06-19] MEDS: MARINOL PO SCH ×2 (09:52→22:10)
[2016-06-19] MEDS: VANCOMYCIN 1.5 GM in NS 250 ML IV SCH (09:52)
[2016-06-19] MEDS: MIRALAX PO SCH (10:08)
[2016-06-19] MEDS: PERICOLACE PO SCH ×2 (10:10→22:09)
[2016-06-19] MEDS: MORPHINE IV PRN ×3 (13:46→23:59)
[2016-06-19] MEDS: MYCOSTATIN SUSP PO SCH ×4 (14:40→22:10)
--- NOTE | 2016-06-19 15:17 | PROGRESS NOTE ---
DATE: 06/19/2016 SUBJECTIVE: Today, the patient is resting in bed. She has minimal oral intake and continues on TPN. Her blood counts dropped and she is getting ready to receive 1 unit of blood transfusion today. PHYSICAL EXAMINATION: Vital Signs: Temperature 98.5 degrees, pulse rate of 85 , respiratory rate 18, blood pressure of 150/84, saturating 94% on 4 L nasal cannula. General Appearance: Thinly built, lying in bed, in no acute distress. HEENT: Pale conjunctivae. No icterus. Neck: Is supple. Abdomen: Soft, nontender, nondistended. No guarding. No rebound. Extremities: No cyanosis, clubbing. Neurologic: She is alert, awake, oriented x3. LAB: Hemoglobin and hematocrit are 8.7 and 25.3, white count of 12.05, platelet count of 56,000. Sodium 127, potassium 3.7, chloride 90, bicarb 23, anion gap of 14, BUN of 66, creatinine of 0.8, glucose of 397, calcium 7.4, phosphorus 4, magnesium 1.6. IMPRESSION AND PLAN: 1. Metastatic non-small cell lung cancer along with gastric metastasis, having intermittent gastrointestinal bleeding. Continue Protonix and Carafate and we will keep her on supportive blood transfusion as needed. 2. Poor oral intake, continuing on total parenteral nutrition. I encouraged the patient to take Ensure or Boost 3 times daily. 3. Anemia. Watch for now and transfusion today. 4. Hyponatremia. Continue to watch per the primary team. 5. I also discussed the physical therapy with the patient's family and the patient. Today, we should try the patient to sit up in the bed and maybe be able to sit in the chair if tolerated. 6. Above plan was discussed with the patient and family and all their questions have been answered. [facility]
[2016-06-19] MEDS ORDERED: [UNRECOGNIZED DRUG - OTHER] IV SCH ×9 (16:00)
[2016-06-19] MEDS ORDERED: MAGNESIUM SULFATE IV SCH ×9 (16:00)
[2016-06-19] MEDS ORDERED: LIPOSYN 20% 250 ML IV SCH (16:00)
[2016-06-19] MEDS ORDERED: POTASSIUM CHLORIDE IV SCH ×9 (16:00)
[2016-06-19] MEDS ORDERED: TPN ELECTROLYTES IV SCH ×9 (16:00)
[2016-06-19] MEDS ORDERED: AYR NASAL SPRAY NAS PRN (16:19)
[2016-06-19] MEDS: ULTRAM PO SCH ×2 (18:02→22:09)
[2016-06-19] MEDS ORDERED: NS 500 ML ONE (18:52)
[2016-06-19] MEDS: AMBIEN PO PRN (22:34)
[2016-06-20] MEDS: PHENERGAN IV PRN ×3 (01:12→19:53)
[2016-06-20] MEDS: XANAX PO PRN ×3 (01:12→21:58)
[2016-06-20] MEDS: LEVAQUIN 500 MG/D5W 100 ML IV SCH (03:21)
[2016-06-20] MEDS: REGLAN IV SCH ×2 (03:22→14:27)
[2016-06-20] MEDS: DUONEB (A & A) INH PRN (04:27)
[2016-06-20] MEDS: COMPAZINE IV SCH ×3 (05:06→16:32)
[2016-06-20] MEDS: MORPHINE IV PRN ×3 (05:39→19:53)
[2016-06-20] MEDS: ZOFRAN IV SCH ×2 (05:39→16:32)
[2016-06-20] MEDS: CARAFATE LIQUID PO SCH ×4 (06:35→16:31)
[2016-06-20] MEDS: PROTONIX PO SCH ×2 (06:36→07:38)
[2016-06-20] MEDS: HUMALOG SUBQ SCH ×3 (06:36→16:32)
[2016-06-20] MEDS: BREO ELLIPTA 100/25 MCG INH INH SCH (07:14)
[2016-06-20] MEDS: MUCOMYST 20% INH SCH (07:14)
[2016-06-20] MEDS: DUONEB (A & A) INH SCH ×3 (07:14→15:27)
--- NOTE | 2016-06-20 07:42 | Diag Imaging Result Document ---
PROCEDURE NAME: CHEST-PORTABLE - 06/20/2016 SINGLE FRONTAL RADIOGRAPH OF THE CHEST: COMPARISON: 06/17/2016. FINDINGS: Left PICC line is stable. There is a prominent pleural fluid collection on the right that has increased in size during the interval. Diffuse infiltrate seen throughout the aerated portion of the right lung is again noted. The left lung remains clear. Cardiac silhouette is stable. IMPRESSION: Increasing pleural fluid collection and diffuse infiltrate seen throughout the right lung.
[2016-06-20] MEDS: LASIX IV SCH (08:56)
[2016-06-20] MEDS: MARINOL PO SCH (11:01)
[2016-06-20] MEDS: ULTRAM PO SCH (11:01)
[2016-06-20] MEDS: SOLU-MEDROL IV SCH (11:07)
[2016-06-20] MEDS: MYCOSTATIN SUSP PO SCH ×2 (12:33→14:08)
[2016-06-20] MEDS: PERICOLACE PO SCH (12:33)
[2016-06-20] MEDS: MIRALAX PO SCH (12:34)
[2016-06-20 19:04] VITALS: BP 98/55
[2016-06-20] MEDS: AMBIEN PO PRN (21:58)
== END 2016-06-20 19:47 | disposition hospice, inpatient (51) | DRG 374 ==
LOC: DIRADM 11:48 → 3S 12:30 → 3N 05-31 18:14
PROVIDERS: ADMIT Internal Medicine; ATTEND Internal Medicine
PROC: 30233N1 Transfusion of Nonautologous Red Blood Cells into Peripheral Vein, Percutaneous Approach (ICD-10-PCS; 2016-05-29)
PROC: 0DB68ZX Excision of Stomach, Via Natural or Artificial Opening Endoscopic, Diagnostic (ICD-10-PCS; principal; 2016-05-30 12:22)
PROC: 02HV33Z Insertion of Infusion Device into Superior Vena Cava, Percutaneous Approach (ICD-10-PCS; 2016-06-01)
PROC: 3E04305 Introduction of Other Antineoplastic into Central Vein, Percutaneous Approach (ICD-10-PCS; 2016-06-01)
PROC: 3E0436Z Introduction of Nutritional Substance into Central Vein, Percutaneous Approach (ICD-10-PCS; 2016-06-14)
DX: C78.89 Secondary malignant neoplasm of other digestive organs (principal); J18.9 Pneumonia, unspecified organism; B37.0 Candidal stomatitis; C79.71 Secondary malignant neoplasm of right adrenal gland; C79.72 Secondary malignant neoplasm of left adrenal gland; E46 Unspecified protein-calorie malnutrition; J44.0 Chronic obstructive pulmonary disease with (acute) lower respiratory infection; E87.1 Hypo-osmolality and hyponatremia; C34.2 Malignant neoplasm of middle lobe, bronchus or lung; D62 Acute posthemorrhagic anemia; K92.2 Gastrointestinal hemorrhage, unspecified; D69.6 Thrombocytopenia, unspecified; Z99.81 Dependence on supplemental oxygen; E83.51 Hypocalcemia; E87.6 Hypokalemia; I12.9 Hypertensive chronic kidney disease with stage 1 through stage 4 chronic kidney disease, or unspecified chronic kidney disease; N18.9 Chronic kidney disease, unspecified; E78.5 Hyperlipidemia, unspecified; I71.4 Abdominal aortic aneurysm, without rupture; I73.9 Peripheral vascular disease, unspecified; K21.9 Gastro-esophageal reflux disease without esophagitis; K59.00 Constipation, unspecified; M19.90 Unspecified osteoarthritis, unspecified site; F32.9 Major depressive disorder, single episode, unspecified; F17.210 Nicotine dependence, cigarettes, uncomplicated; Z66 Do not resuscitate; Z79.899 Other long term (current) drug therapy; Z82.49 Family history of ischemic heart disease and other diseases of the circulatory system
CPT/HCPCS: 36569; 71010; 71020; 77014; 77290; 77295; 77300; 77331; 77334; 77412; 80048; 80053; 80076; 80202; 81001; 82465; 82805; 82948; 83735; 84100; 84134; 84450; 84478; 85014; 85018; 85025; 85610; 86850; 86900; 86901; 86920; 87040; 88305; 88312; 88313; 93005; 93010; 94640; 94760; 94761; 94799; C9113; J0360; J0610; J0780; J1170; J1453; J1756; J1815; J1940; J2270; J2370; J2405; J2550; J2765; J2920; J3370; J3420; J3475; J3480; J7030; J7040; J7050; J7120; J9045; J9264; P9016; 97110-GP; 97530-GP; S0164

== ENCOUNTER 2016-06-20 19:48 | Inpatient (IN) | payer OTHER ==
[2016-06-21] MEDS ORDERED: MORPHINE IV PRN (01:46)
[2016-06-21] MEDS ORDERED: PHENERGAN IV PRN (01:47)
[2016-06-21] MEDS ORDERED: DUONEB (A & A) INH PRN ×2 (01:48→02:04)
[2016-06-21] MEDS ORDERED: AYR NASAL DROPS NAS PRN ×2 (01:52→02:01)
[2016-06-21] MEDS ORDERED: CALMOSEPTINE OINTMENT TOP PRN ×2 (01:53→02:03)
[2016-06-21] MEDS ORDERED: AMBIEN PO PRN ×2 (01:54→02:00)
[2016-06-21] MEDS ORDERED: ATIVAN IV PRN (01:56)
[2016-06-21] MEDS ORDERED: XANAX PO PRN ×2 (01:56→02:04)
[2016-06-21] MEDS ORDERED: BLISTEX MEDICATED BERRY LIP BALM TOP PRN ×2 (01:57→02:04)
[2016-06-21] MEDS ORDERED: MORPHINE IV SCH (02:00)
[2016-06-21] MEDS ORDERED: REGLAN IV SCH (02:00)
[2016-06-21] MEDS ORDERED: COMPAZINE IV SCH (02:00)
[2016-06-21] MEDS: MORPHINE IV SCH ×3 (02:21→19:44)
[2016-06-21] MEDS: ATIVAN IV PRN ×2 (02:22→19:45)
[2016-06-21] MEDS ORDERED: DUONEB (A & A) INH SCH (03:30)
[2016-06-21] MEDS ORDERED: ZOFRAN IV SCH (04:00)
[2016-06-21] MEDS: DUONEB (A & A) INH SCH ×6 (06:00→23:00)
[2016-06-21] MEDS: COMPAZINE IV SCH ×4 (08:17→22:31)
[2016-06-21] MEDS: LASIX IV SCH (08:19)
[2016-06-21] MEDS: ZOFRAN IV SCH (08:19)
[2016-06-21] MEDS: MORPHINE IV PRN ×3 (08:54→22:31)
[2016-06-21] MEDS ORDERED: LASIX IV SCH (09:00)
[2016-06-21] MEDS: REGLAN IV SCH ×3 (11:50→19:02)
[2016-06-22] MEDS: PHENERGAN IV PRN ×2 (01:32→13:44)
[2016-06-22] MEDS: MORPHINE IV PRN ×3 (01:32→17:00)
[2016-06-22] MEDS: ZOFRAN IV SCH ×3 (01:59→20:44)
[2016-06-22] MEDS: REGLAN IV SCH ×3 (03:09→16:59)
[2016-06-22] MEDS: COMPAZINE IV SCH ×4 (03:10→20:42)
[2016-06-22] MEDS: DUONEB (A & A) INH SCH ×6 (03:37→23:50)
[2016-06-22] MEDS: MORPHINE IV SCH ×3 (04:56→20:41)
[2016-06-22] MEDS: LASIX IV SCH (10:40)
[2016-06-22] MEDS: ATIVAN IV PRN (20:44)
[2016-06-23] MEDS: ATIVAN IV PRN ×4 (01:53→20:37)
[2016-06-23] MEDS: COMPAZINE IV SCH ×5 (01:53→20:37)
[2016-06-23] MEDS: MORPHINE IV PRN ×3 (01:53→17:11)
[2016-06-23] MEDS: REGLAN IV SCH ×4 (01:53→20:02)
[2016-06-23] MEDS: DUONEB (A & A) INH SCH ×2 (02:35→21:23)
[2016-06-23] MEDS ORDERED: SODIUM CHLORIDE 0.9% 10 ML ONE (04:21)
[2016-06-23] MEDS: PHENERGAN IV PRN (04:24)
[2016-06-23] MEDS: MORPHINE IV SCH ×3 (04:24→20:36)
[2016-06-23] MEDS: ZOFRAN IV SCH ×2 (09:47→20:38)
[2016-06-23] MEDS: LASIX IV SCH (09:47)
[2016-06-24] MEDS: MORPHINE IV PRN ×2 (01:03→06:40)
[2016-06-24] MEDS: ATIVAN IV PRN ×4 (01:03→16:16)
[2016-06-24] MEDS: DUONEB (A & A) INH SCH ×4 (01:21→21:35)
[2016-06-24] MEDS: REGLAN IV SCH ×5 (03:17→17:53)
[2016-06-24] MEDS: MORPHINE IV SCH ×2 (03:17→08:48)
[2016-06-24] MEDS: COMPAZINE IV SCH ×4 (03:17→15:16)
[2016-06-24] MEDS: ZOFRAN IV SCH (08:49)
[2016-06-24] MEDS: LASIX IV SCH (08:49)
[2016-06-24] MEDS ORDERED: SODIUM CHLORIDE 0.9% INJ PRN (09:57)
[2016-06-24] MEDS ORDERED: MORPHINE PCA IV PRN (09:57)
[2016-06-24] MEDS ORDERED: PHENERGAN IV PRN (09:57)
[2016-06-24] MEDS ORDERED: NARCAN IV PRN (09:57)
[2016-06-24] MEDS ORDERED: BENADRYL IV PRN (09:57)
[2016-06-24] MEDS ORDERED: NS 1,000 ML ONE (10:33)
[2016-06-25] MEDS: COMPAZINE IV SCH ×5 (00:13→15:39)
[2016-06-25] MEDS: ZOFRAN IV SCH ×2 (00:14→09:38)
[2016-06-25] MEDS: ATIVAN IV PRN ×3 (00:58→13:54)
[2016-06-25] MEDS: DUONEB (A & A) INH SCH ×3 (03:30→03:37)
[2016-06-25] MEDS: REGLAN IV SCH ×4 (03:30→18:10)
[2016-06-25] MEDS: LASIX IV SCH (09:39)
[2016-06-25 13:12] VITALS: BP 92/48
--- NOTE | 2016-06-25 14:06 | PROGRESS NOTE ---
DATE: 06/25/2016 SUBJECTIVE: Ms. Springer is doing fair. Patient is on comfort care for metastatic non-small cell lung cancer along with gastric metastasis. Patient is not in any pain. No fever or chills. No nausea or vomiting. No evidence of active bleeding. OBJECTIVE: Vital signs: Noted. At times tachycardic. CVS: S1 and S2 heard. Abdomen: Soft, globular. Bowel sounds present. 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 CONSIDERATION: 1. Metastatic small-cell lung cancer. 2. Gastrointestinal bleed. PLAN: We will continue current treatment, comfort care. Plan discussed with the family. They are in agreement.
[2016-06-25] MEDS ORDERED: ATIVAN IV PRN (15:39)
--- NOTE | 2016-06-27 21:52 | DISCHARGE SUMMARY ---
ADMISSION DATE: 06/20/2016 DISCHARGE DATE: 06/25/2016 DATE OF DISCHARGE TO THE [facility]: 06/20/2016 Hospice care with the [facility] from 06/20/2016 to 06/25/2016. DISCHARGING DIAGNOSES: Acute cardiopulmonary arrest due to terminal lung cancer non-small cell adenocarcinoma stage IV metastatic to the stomach with gastrointestinal bleeding. OTHER DIAGNOSES: 1. Postobstructive pneumonia right middle lung. 2. Oral thrush. 3. History of chronic obstructive pulmonary disease. 4. History of tobacco abuse. 5. History of peripheral vascular disease. 6. Abdominal aortic aneurysm 3.4 cm. 7. History of bilateral renal artery stents. 8. History of hyponatremia. 9. History of acute blood loss anemia due to upper gastrointestinal bleeding. 10. Declining performance status less than 30%. CONSULTS: Dr. Smith, Dr. Moody, Dr. Palencia. PROCEDURES: 1. PICC line on the left side. 2. Palliative radiation therapy to the stomach. 3. Palliative chemotherapy x3 by Dr. Palencia. 4. Transfusion 10 units of packed RBC. 5. Nutritional support with IV TPN. BRIEF HISTORY: Please see the H and P that was done on the day of admission 05/29/2016. In brief she is a 70-year-old white female has been suffering from postobstructive pneumonia since March on the right middle lobe, not able to clearing subsequently diagnosed [id number] adenocarcinoma metastatic disease, waiting for staging and chemotherapy and radiation. In the meantime, patient was readmitted with acute blood loss anemia, heme-positive stools. HOSPITAL COURSE: She was started on hematological support with packed RBC and Dr. Smith was consulted and performed EGD which showed metastatic disease of small cell into the stomach. Biopsy was positive for adenocarcinoma. Patient has persistent right middle lobe pneumonia worsening on the right side. Family consulted for aggressive palliative chemo and radiation. Hospital course as follows. 1. Acute blood loss anemia due to metastasis in the stomach. She was given hematological support as needed requiring 10 units of packed RBCs. 2. [place] was consulted for palliative radiation without any success. 3. Persistent right middle lobe pneumonia. Was given oxygen, bronchodilators, IV steroids, IV antibiotics. 4. Poor performance status, unable to do the physical therapy. 5. Nutritional support with IV TPN and lipids. 6. Worsening of sugars due to TPN along with IV steroids requiring insulin. 7. Hyponatremia due to SIADH given IV hypertonic saline. 8. Gastrointestinal prophylaxis with IV Protonix. 9. IV access problem, PICC line on the left side and palliative chemotherapy by Dr. Palencia. Despite aggressive medical management with palliative chemoradiation, hematological support patient continues to be declining and feeble. Patient decided on 06/20/2016 for comfort care and she stopped all the nutritional support, radiation chemotherapy. At that time, patient decided to DNR level 1 and transferred the care to inpatient hospice by [facility]. 10. The discharge summary from 06/20/2016 and 06/25/2016 patient remains feeble, was given oxygen, scopolamine patch, IV morphine, CERTIFIED NURSES' AIDE pump. Family was there at the bedside and patient peacefully on 06/25/2016 at 4:20 p.m. The patient from cardiopulmonary arrest due to terminal lung cancer with comorbid conditions as above.
== END 2016-06-25 16:25 | disposition expired | DRG 181 ==
LOC: 3N 19:48 → 4N 06-23 06:34 → 3N 06-23 06:44
PROVIDERS: ADMIT Internal Medicine; ATTEND Internal Medicine
DX: C34.2 Malignant neoplasm of middle lobe, bronchus or lung (principal); C78.89 Secondary malignant neoplasm of other digestive organs; Z51.5 Encounter for palliative care; Z66 Do not resuscitate; Z99.81 Dependence on supplemental oxygen; C78.5 Secondary malignant neoplasm of large intestine and rectum; K92.2 Gastrointestinal hemorrhage, unspecified; J44.9 Chronic obstructive pulmonary disease, unspecified; I10 Essential (primary) hypertension; E78.5 Hyperlipidemia, unspecified; I73.9 Peripheral vascular disease, unspecified; K21.9 Gastro-esophageal reflux disease without esophagitis; F17.210 Nicotine dependence, cigarettes, uncomplicated; Z82.49 Family history of ischemic heart disease and other diseases of the circulatory system; Z83.3 Family history of diabetes mellitus
CPT/HCPCS: 94640; 94761; J0780; J1200; J1940; J2060; J2270; J2405; J2550; J2765; J7030